=== PATIENT | male | born 1960 | race Caucasian/White ===

== ENCOUNTER 2016-11-24 06:29 | Inpatient (IN) | payer OTHER ==
[2016-11-02 08:09] VITALS: BMI 29.0
--- NOTE | 2016-11-02 08:45 | PAT Medication Instructions ---
Service Date Nov 02, 2016. Current Home Medication List Atorvastatin (Lipitor), 10 MG PO HS Medication Instructions For Your Scheduled Surgery - Take the following medications as scheduled the night before surgery: Atorvastatin (Lipitor), 10 MG PO HS If you have any questions please call us at [phone] or [phone] ( [place]) or [phone]
[2016-11-02 09:38] LABS: BASO % 0.4 %; BASO ABS # 0.03 K/uL (0-0.2); COMPLETE YES; IG% 0.4 %; LYMPH % 26.8 %; LYMPH ABS # 1.86 K/uL (1.2-3.4); MEAN CELL VOLUME 90.5 fL (80-100); MEAN CORPUSCULAR HEMOGLOBIN 30.2 pg (25-34); MEAN CORPUSCULAR HGB CONC 33.3 g/dl (32-36); MEAN PLATELET VOLUME 9.8 fL (7.4-10.4); MONO % 12.2 %; NEUT % 57.2 %; PLATELET COUNT 223 K/uL (130-400); RED BLOOD COUNT 4.64 M/uL (4.7-6.1); WHITE BLOOD COUNT 6.94 K/uL (4.8-10.8)
[2016-11-02 09:41] LABS: URINE APPEARANCE CLEAR (CLEAR); URINE BILIRUBIN NEG (NEG); URINE COLOR YELLOW; URINE NITRITE NEG (NEG); URINE SPECIFIC GRAVITY 1.003 (1.000-1.030); UROBILINOGEN NEG (NEG)
[2016-11-02 09:45] LABS: MANUAL MICROSCOPIC REQUIRED? NO; REVIEW REQ? NO
[2016-11-02 10:16] LABS: BUN/CREATININE RATIO 16.9 (10-20); CALCIUM 8.7 mg/dl (8.5-10.1); CREATININE 1.4 mg/dl (0.60-1.40); POTASSIUM 5.1 mmol/L (3.5-5.1)
[~2016-11-24] VITALS: Ht 182.9 cm; Wt 96.5 kg
[2016-11-24] VITALS (8 sets, daily range): BP systolic 122–151; BP diastolic 73–89; PULSE 66–101; TEMP 36.4–37.3; O2SAT 96–100; Ht 182.9 cm; Wt 96.5 kg
[~2016-11-24 06:29] MED LIST: ATOR10TA88 PO; CEFAZOLIN 2000 MG/60 ML D5W IV SCH; HEPARIN SOD 5000 UNIT/0.5 ML CARP SQ SCH; LACTATED RINGER'S 1000ML 1,000 ML IV SCH
[2016-11-24] MEDS ORDERED: DEXAMETHASONE SOD INJ 4 MG/ML VIAL ONE (06:44)
[2016-11-24] MEDS ORDERED: GLYCOPYRROLATE INJ 0.2 MG/ML VIAL ONE (06:44)
[2016-11-24] MEDS ORDERED: FENTANYL CITRATE INJ 50 MCG/1 ML 2 ML VIAL ONE (06:44)
[2016-11-24] MEDS ORDERED: NEOSTIGMINE METHYLSULFATE 5 MG/5 ML SYR ONE (06:44)
[2016-11-24] MEDS ORDERED: ROCURONIUM BROMIDE 10 MG/ML 5 ML VIAL ONE ×2 (06:44→09:30)
[2016-11-24] MEDS ORDERED: PROPOFOL IV EMULSION 10 MG/ML 20 ML VIAL IV ONE (06:44)
[2016-11-24] MEDS ORDERED: LIDOCAINE HCL 2% 2 ML VIAL (20MG/ML) ONE (06:44)
[2016-11-24] MEDS ORDERED: ONDANSETRON INJ 2 MG/ML 2 ML VIAL ONE (06:44)
[2016-11-24] MEDS ORDERED: MIDAZOLAM HCL 1 MG/ML 2ML VIAL ONE (06:45)
[2016-11-24] MEDS ORDERED: [UNRECOGNIZED DRUG - CODE] PO (07:04)
[2016-11-24] MEDS ORDERED: GELATIN SPONGE SZ 100 ONE (07:08)
[2016-11-24] MEDS ORDERED: BUPIVACAINE 0.5 % 5 MG/1 ML MPF 30ML VIAL ONE (07:09)
[2016-11-24] MEDS ORDERED: MANNITOL 25% 50 ML VIAL ONE (07:09)
[2016-11-24 07:24] LABS: HEMATOCRIT 41.7 % (42-52); MEAN CELL VOLUME 89.5 fL (80-100); MEAN CORPUSCULAR HEMOGLOBIN 30.3 pg (25-34); MEAN PLATELET VOLUME 9.4 fL (7.4-10.4); PLATELET COUNT 246 K/uL (130-400); RED BLOOD COUNT 4.66 M/uL (4.7-6.1); WHITE BLOOD COUNT 6.92 K/uL (4.8-10.8)
[2016-11-24 07:33] LABS: MEAN CORPUSCULAR HGB CONC 33.8 g/dl (32-36)
--- NOTE | 2016-11-24 08:12 | History and Physical ---
History & Physical Date Nov 24, 2016. 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 Treated initially with nephrectomy, now returning for completion ureterectomy. He is s/p chemotherapy, no evidence of disease recurrence. In excellent health overall. Past Medical/Surgical History Medical Problems: (1) Kidney atrophy (2) Prostate enlargement Additional History Endocrine Disorder: No Kidney Disease: No Hypertension: Yes Bleeding Tendencies: No Allergies Coded Allergies: No Known Allergies (Unverified , 11/24/16) Home Medications Scheduled Atorvastatin (Lipitor), 10 MG PO HS Magnesium Citrate (Magnesium Citrate 1.745 gm/30Ml), 1 BTL PO DIRECTED Physical Examination Skin: warm/dry Eyes: normal inspection ENT: normal ENT inspection Head: normocephalic Neck: supple Respiratory/Chest: normal breath sounds Cardiovascular: regular rate, rhythm, no edema Abdomen / GI: normal bowel sounds Back: normal inspection Extremities: normal inspection Neurologic/Psych: no motor/sensory deficits, alert Diagnosis Urothelial carcinoma Plan of Treatment Completion/distal ureterectomy (right sided); cystoscopy
[2016-11-24] MEDS ORDERED: ONDANSETRON INJ 2 MG/ML 2 ML VIAL IV PRN ×2 (08:30→11:00)
[2016-11-24] MEDS ORDERED: EpHEDrine SULFATE INJ 50 MG/ML AMP IV PRN (08:30)
[2016-11-24] MEDS ORDERED: HYDROmorphone INJ 0.5 MG/0.5 ML SYR IV PRN (08:30)
[2016-11-24] MEDS ORDERED: ATROPINE SULFATE 0.1 MG/ML 5ML SYR IV PRN (08:30)
[2016-11-24] MEDS ORDERED: KETOROLAC TROMETHAMINE 15 MG/ML VIAL IV PRN (11:00)
[2016-11-24] MEDS ORDERED: OXYBUTYNIN CHLORIDE 5 MG TAB PO PRN (11:00)
[2016-11-24] MEDS ORDERED: HYDROmorphone INJ 1 MG/ML SYR IV PRN (11:00)
--- NOTE | 2016-11-24 11:06 | [facility] Post Operative Brief Note ---
Immediate Operative Summary Operative Date Nov 24, 2016. Pre-Operative Diagnosis Urothelial carcinoma Post-Operative Diagnosis Urothelial carcinoma Procedure(s) Performed Robotic assisted Laparoscopic Right ureterectomy and Cystoscopy with Right Temporary Ureteral Catheter placement. Surgeon Dr. Dave Turner Pathologist Assistant Surgeon(s) Rosa AVILA Estimated Blood Loss 5 ml Findings Healthy appearing R ureter. NO visible or palpable tumor. No evidence of any tumor recurrence on cystoscopy. Specimens Permanent Specimen A: Right ureter Drains NATALIE; garcia Anesthesia gen Complication(s) None Disposition Recovery Room / PACU (stable)
[2016-11-24 11:26] LABS: HEMATOCRIT 40.8 % (42-52); MEAN CELL VOLUME 89.9 fL (80-100); MEAN CORPUSCULAR HEMOGLOBIN 30.4 pg (25-34); MEAN PLATELET VOLUME 9.3 fL (7.4-10.4); PLATELET COUNT 214 K/uL (130-400); RED BLOOD COUNT 4.54 M/uL (4.7-6.1)
[2016-11-24 11:35] LABS: MEAN CORPUSCULAR HGB CONC 33.8 g/dl (32-36)
[2016-11-24] MEDS: FENTANYL CITRATE INJ 50 MCG/1 ML 2 ML VIAL IV PRN ×2 (11:45→11:50)
[2016-11-24 11:46] LABS: BUN/CREATININE RATIO 11.1 (10-20); CALCIUM 8.8 mg/dl (8.5-10.1); CREATININE 1.6 mg/dl (0.60-1.40); POTASSIUM 4.9 mmol/L (3.5-5.1)
--- NOTE | 2016-11-24 12:11 | Anesthesiology Progress Note ---
Anesthesia Post Op Note Date & Time Nov 24, 2016 at 12:11 Vital Signs Pain Intensity: 4 Vital Signs Past 12 Hours Date Time Temp Pulse Resp B/P Pulse Ox O2 Delivery O2 Flow Rate FiO2 11/24/16 12:00 74 12 132/84 100 Nasal Cannula 2 11/24/16 11:50 66 14 137/82 100 Nasal Cannula 2 11/24/16 11:40 70 9 128/85 100 Mask 10 11/24/16 11:30 69 9 133/90 100 Mask 10 11/24/16 11:20 75 12 144/77 100 Mask 10 11/24/16 11:12 36.4 79 16 139/80 100 Mask 10 11/24/16 07:00 36.9 90 18 130/89 97 Room Air Notes Mental Status: alert / awake / arousable, participated in evaluation Pt Amnestic to Procedure: Yes Nausea / Vomiting: adequately controlled Pain: adequately controlled Airway Patency, RR, SpO2: stable & adequate BP & HR: stable & adequate Hydration State: stable & adequate Anesthetic Complications: no major complications apparent
--- NOTE | 2016-11-24 12:34 | OPERATIVE REPORT ---
DATE OF OPERATION: 11/24/2016 PREOPERATIVE DIAGNOSIS: Urothelial carcinoma. POSTOPERATIVE DIAGNOSIS: Urothelial carcinoma. PROCEDURE PERFORMED: 1. Cystoscopy, right ureteral stent placement. 2. Robotic-assisted laparoscopic right ureterectomy with excision of bladder cuff. ANESTHESIA: General. ESTIMATED BLOOD LOSS: 25 mL URINE OUTPUT: Not recorded. SPECIMEN: Right ureter for routine pathology. DRAINS: 1. NATALIE drain. 2. Salazar catheter. DESCRIPTION OF THE PROCEDURE: Paul Weber was identified in the preoperative holding area. Appropriate informed consents were reviewed and completed, and the patient was transported to the operating suite. Upon arrival, he received appropriate preoperative antibiotics in the form of Ancef and adequate general anesthesia. PROCEDURE #1: The patient was placed in dorsal lithotomy position and sterilely prepped and draped in standard fashion. I passed a cystoscope per urethra and inspected the urethra and prostate. His prostate is relatively enlarged. There is no evidence of stricture disease or other abnormality. Full inspection of the bladder was carried out revealing no evidence of any bladder mucosal abnormalities or bladder tumors. Both the left and right ureteral orifices were identified in orthotopic position. Following my inspection, I cannulated the right ureteral orifice with a 5-Mozambican open-ended catheter and gently advanced it to approximately 15 cm. This was left in place. The cystoscope was removed. I placed a 16-Mozambican Salazar catheter without difficulty and secured the ureteral catheter to the Salazar. This concluded that portion #1. PROCEDURE #2: For the second portion of the case, the patient was left in the lithotomy position. His abdomen was sterilely prepped and draped in standard fashion. I then passed a Veress needle per umbilicus and made a small supraumbilical incision. Utilizing a 12 mm Visiport and a 10-mm 0-degree lens, I entered the abdomen. Inspection revealed no significant adhesive disease. I inspected anticipated locations for additional port sites and I placed ports in standard robotic prostatectomy fashion with the exception of skipping a 5 mm front end assistant port. After these ports were placed, we placed the patient in steep Trendelenburg position and docked the robot. Inspection of the deep pelvis revealed that there were some adhesions on the lateral aspect of the sigmoid colon, which were holding the colon into the pouch of Erik. I freed these lateral adhesions to allow further mobility of the colon out of that space. I freed several small adhesions on the right side, which exposed the external iliac vessels and I was also additionally able to see the common iliac vessels. Starting just over the external iliac artery, I incised the peritoneum and immediately encountered the ureter. I traced this proximally until I found a clip just above the top of the vessels. I circumferentially dissected around this until it was freed. An additional Weck clip with a long suture attached to it was placed just distal to the clip that was dissected. Utilizing the stitch to aide in retraction, I was able to elevate the ureter and dissect circumferentially around it tracing it down its course toward the bladder. I incised the overlying peritoneum and continued along this path of dissection until I encountered the vas deferens which was preserved while I dissected beneath it. As I reached the extreme pelvis, I inflated the bladder with normal saline to more easily demarcate the bladder and detrusor muscle from the ureter itself. After exposing the full intramural ureter,I removed the proviously placed ureteral catheter and then placed a 2-0 V-Loc stitch on the lateral extent of my planned cystotomy before opening the cuff of bladder around the ureter. The ureter was removed through the front end assistant port without difficulty. I then proceeded to close the mucosal defect beginning on the lateral aspect, sewing toward the medial aspect. I then inflated the bladder and I saw a continued leak distally. To control this, I placed a second 2-0 V-Loc stitch beginning at the distal most extent and I closed the mucosa and then ultimately imbricated the detrusor muscle over this area. At the conclusion of these closures, there was no evidence of continued leak with bladder irrigation. Salazar catheter was checked and found to have an intact balloon. After closure was completed, a NATALIE drain was guided in through the right robotic port. The robotic ports and laparoscopic ports were removed and insufflation turned off. The robot was undocked. The patient was reversed to a supine position and all of his ports were closed sequentially. Midline port and the lateral 12 mm front end assistant port were closed with a [id number] Vicryl stitch to the fascia, followed by closure of all skin incisions with 4-0 Monocryl and Dermabond. All were infiltrated with 0.5% Marcaine prior to closure. At the conclusion of the case, the patient was extubated and taken to the PACU in stable condition. There were no complications. I attest to the content of the Intraoperative Record and any orders documented therein. Any exceptions are noted below. [facility]
[2016-11-24] MEDS: LACTATED RINGER'S 1000ML 1,000 ML IV SCH ×3 (13:55→23:46)
[2016-11-24] MEDS: ACETAMINOPHEN 500 MG TAB PO SCH ×3 (13:55→20:00)
[2016-11-24 14:23] LABS: PROTHROMBIN TIME (PATIENT) 10.8 SECONDS (9.0-12.0)
--- NOTE | 2016-11-24 16:50 | Progress Note ---
Progress Note Date of Service Nov 24, 2016. Progress Note Pt doing very well post op - ambulated - tolerated clear liquids - pain controlled - urine clear
[2016-11-24] MEDS: CEFAZOLIN IV 1,000 MG in DEXTROSE 5% 50ML 50 ML IV SCH ×2 (16:53→23:46)
[2016-11-24] MEDS: HEPARIN SOD 5000 UNIT/0.5 ML CARP SQ SCH (19:46)
[2016-11-24] MEDS: DOCUSATE SODIUM 100 MG CAP PO SCH (20:58)
[2016-11-24] MEDS ORDERED: ATORVASTATIN 10 MG TAB PO SCH (21:00)
[2016-11-24] MEDS: ACETAMINOPHEN/CODEINE 300/30MG TAB PO PRN (23:46)
[2016-11-25] MEDS: ACETAMINOPHEN 500 MG TAB PO SCH ×2 (01:46→08:00)
[2016-11-25 04:00] VITALS: BP 118/71; PULSE 89; TEMP 36.7; O2SAT 96
[2016-11-25] MEDS: LACTATED RINGER'S 1000ML 1,000 ML IV SCH (06:21)
[2016-11-25] MEDS: HEPARIN SOD 5000 UNIT/0.5 ML CARP SQ SCH (06:22)
[2016-11-25 06:56] LABS: BASO % 0.1 %; BASO ABS # 0.01 K/uL (0-0.2); COMPLETE YES; EOS % 0.1 %; HEMATOCRIT 35.1 % (42-52); IG% 0.2 %; LYMPH % 14.8 %; LYMPH ABS # 1.83 K/uL (1.2-3.4); MEAN CELL VOLUME 89.5 fL (80-100); MEAN CORPUSCULAR HEMOGLOBIN 30.1 pg (25-34); MEAN CORPUSCULAR HGB CONC 33.6 g/dl (32-36); MONO % 13.1 %; NEUT % 71.7 %; PLATELET COUNT 202 K/uL (130-400); RED BLOOD COUNT 3.92 M/uL (4.7-6.1)
[2016-11-25 07:34] LABS: BUN/CREATININE RATIO 11.5 (10-20); CALCIUM 8.6 mg/dl (8.5-10.1); CREATININE 1.5 mg/dl (0.60-1.40); POTASSIUM 4.3 mmol/L (3.5-5.1)
--- NOTE | 2016-11-25 07:38 | Progress Note ---
Subjective Date of Service: Nov 25, 2016. Subjective Pt evaluation today including: conversation w/ patient, chart review, lab review Voiding: garcia catheter in place (patent, draining clear, yellow urine) 55 yo male s/p right ureterectomy. Pt reports he feels well and is ready to go home. Denies n/v. He reports he ate a soft mechanical diet for dinner last night and tolerated it well. + passing flatus and liquid stools. Denies pain. Cr is 1.5 this morning. Review of Systems Constitutional: No chills, No fever Respiratory: No shortness of breath Cardiac: No chest pain Abdomen: No nausea, No pain, No vomiting Male : No hematuria Heme: No abnormal bleeding/bruising Objective Vital Signs Date Time Temp Pulse Resp B/P Pulse Ox O2 Delivery O2 Flow Rate FiO2 11/25/16 04:00 36.7 89 16 118/71 96 Room Air 11/24/16 23:50 Room Air 11/24/16 23:00 37.2 97 18 128/76 96 Room Air 11/24/16 19:15 37.3 101 18 125/78 96 Room Air 11/24/16 16:00 96 Room Air 11/24/16 15:46 36.7 73 20 151/83 96 Room Air 11/24/16 14:45 36.4 73 18 130/81 96 Room Air 11/24/16 13:45 36.6 66 18 122/73 98 Room Air 11/24/16 12:45 100 Nasal Cannula 2.0 11/24/16 12:45 Nasal Cannula 11/24/16 12:45 36.9 76 16 135/79 100 Nasal Cannula 11/24/16 12:25 72 13 137/79 100 Nasal Cannula 2 11/24/16 12:10 36.5 69 14 132/79 100 Nasal Cannula 2 11/24/16 12:00 74 12 132/84 100 Nasal Cannula 2 11/24/16 11:50 66 14 137/82 100 Nasal Cannula 2 11/24/16 11:40 70 9 128/85 100 Mask 10 11/24/16 11:30 69 9 133/90 100 Mask 10 11/24/16 11:20 75 12 144/77 100 Mask 10 11/24/16 11:12 36.4 79 16 139/80 100 Mask 10 Physical Exam General Appearance: no apparent distress Eyes: normal inspection ENT: hearing grossly normal Neck: no JVD Respiratory/Chest: no respiratory distress, no accessory muscle use Cardiovascular: no JVD Abdomen: + pertinent finding (abdominal incisions c/d/i) Extremities: normal inspection Neurologic/Psychiatric: alert, normal mood/affect, oriented x 3 Skin: normal color Laboratory Results Last 24 Hours Test 11/24/16 11:21 11/24/16 13:53 11/25/16 06:45 White Blood Count 9.70 K/uL 12.40 K/uL Red Blood Count 4.54 M/uL 3.92 M/uL Hemoglobin 13.8 g/dL 11.8 g/dL Hematocrit 40.8 % 35.1 % Mean Corpuscular Volume 89.9 fL 89.5 fL Mean Corpuscular Hemoglobin 30.4 pg 30.1 pg Mean Corpuscular Hemoglobin Concent 33.8 g/dl 33.6 g/dl RDW Standard Deviation 42.4 fL 43.0 fL RDW Coefficient of Variation 13.0 % 13.3 % Platelet Count 214 K/uL 202 K/uL Mean Platelet Volume 9.3 fL 9.0 fL Sodium Level 138 mmol/L 141 mmol/L Potassium Level 4.9 mmol/L 4.3 mmol/L Chloride Level 105 mmol/L 108 mmol/L Carbon Dioxide Level 27 mmol/L 26 mmol/L Anion Gap 6.0 mmol/L 7.0 mmol/L Blood Urea Nitrogen 18 mg/dl 17 mg/dl Creatinine 1.60 mg/dl 1.50 mg/dl Est Creatinine Clear Calc Drug Dose 62.8 ml/min 67.0 ml/min Estimated GFR () 55.4 59.9 Estimated GFR (Non- 47.8 51.7 BUN/Creatinine Ratio 11.1 11.5 Random Glucose 149 mg/dl 110 mg/dl Calcium Level 8.8 mg/dl 8.6 mg/dl Prothrombin Time 10.8 SECONDS Prothromb Time International Ratio 1.0 Neutrophils (%) (Auto) 71.7 % Lymphocytes (%) (Auto) 14.8 % Monocytes (%) (Auto) 13.1 % Eosinophils (%) (Auto) 0.1 % Basophils (%) (Auto) 0.1 % Neutrophils # (Auto) 8.89 K/uL Lymphocytes # (Auto) 1.83 K/uL Monocytes # (Auto) 1.63 K/uL Eosinophils # (Auto) 0.01 K/uL Basophils # (Auto) 0.01 K/uL Immature Granulocyte % (Auto) 0.2 % Immature Granulocyte # (Auto) 0.03 K/uL Assessment and Plan POD #1 s/p right ureterectomy. AFVSS. Pt doing well post-op. Encourage use of IS. Encourage ambulation to hallway. Will hep lock IV fluids. Pt likely for d/c home after breakfast this morning. Discharge planning: home
[2016-11-25] MEDS ORDERED: ACET-749 PO (07:40)
[2016-11-25] MEDS ORDERED: DTR5 PO (07:40)
[2016-11-25] MEDS ORDERED: CIPR-255 PO (07:40)
[2016-11-25] MEDS ORDERED: CLC100 PO (07:40)
--- NOTE | 2016-11-25 07:48 | Discharge Instructions ---
Discharge Instructions Date of Service Nov 25, 2016. 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 Instructions / Follow-Up Instructions / Follow-Up 1. Do not lift >20lbs x 6 weeks. 2. No heavy exercise x 6 weeks. You may engage in light activity such as walking and stairs as tolerated. 3. Do not drive x [address] while taking narcotics. 4. Follow-up as scheduled. Please call our office at [phone] if you need to reschedule for any reason. . Current Hospital Diet Hospital Diet(s): Regular Diet Discharge Diet Recommended Diet: Regular Diet Procedures Procedures Performed: Robotic assisted Laparoscopic Right ureterectomy and Cystoscopy with Right Temporary Ureteral Catheter placement. Pending Studies Studies pending at discharge: yes List of pending studies: Right ureter pathology Medical Emergencies . Who to Call and When: Medical Emergencies: If at any time you feel your situation is an emergency, please call 911 immediately. . Non-Emergent Contact Non-Emergency issues call your: Urologist Call Non-Emergent contact if: temperature is above 101.5, your pain is not controlled, your pain is worsening, your pain is unusual for you, your pain is concerning you, you have any medication questions . . "Provider Documentation" section prepared by Rosa Webber. VTE Core Measure Inpt VTE Proph given/why not?: Unfractionated heparin SQ, SCD's [place] Drug Monitoring Program Search Results: patient reviewed within database, no issues identified
[2016-11-25 08:02] VITALS: BP 128/88; PULSE 95; TEMP 36.6; O2SAT 95
[2016-11-25] MEDS: DOCUSATE SODIUM 100 MG CAP PO SCH (08:24)
[2016-11-25] MEDS: CEFAZOLIN IV 1,000 MG in DEXTROSE 5% 50ML 50 ML IV SCH (08:24)
[2016-11-25] MEDS: ACETAMINOPHEN/CODEINE 300/30MG TAB PO PRN (08:24)
[2016-11-25 10:13] VITALS: BP 128/88; PULSE 95; TEMP 36.6; O2SAT 95
--- NOTE | 2016-11-27 10:45 | Discharge Summary ---
Discharge Summary Date of Service Nov 27, 2016. Discharge Summary Admission Date: Nov 24, 2016 at 10:58 Discharge Date: Nov 25, 2016 Discharge Disposition: Home Principal Diagnosis: Urothelial carcinoma Procedures: Right ureterectomy Medication Reconciliation New Medications: Ciprofloxacin Hcl (Cipro) 500 Mg Tab 500 MG PO BID, #10 TAB 0 Refills Acetaminophen/Codeine (Tylenol W/Codeine #3) 300 Mg/30 Mg Tab 1-2 TAB PO Q4H PRN for Pain, #20 TAB 0 Refills Docusate Sodium (Docusate Sodium) 100 Mg Cap 100 MG PO BID PRN for Constipation, #60 CAP 0 Refills Oxybutynin Chloride (Oxybutynin Chloride) 5 Mg Tab 5 MG PO Q8 PRN for BLADDER SPASMS, #10 TAB 0 Refills Continued Medications: Atorvastatin (Lipitor) 10 Mg Tab 10 MG PO HS, TAB Discontinued Medications: Magnesium Citrate (Magnesium Citrate 1.745 gm/30Ml) 1 Adele Adele 1 BTL PO DIRECTED Hospital Course Admitted for completion ureterectomy (right). Prior nephrectomy identified a urothelial carcinoma. Details of the procedure as dictated previously in the operative report, however, in summary, he tolerated the procedure extremely well and was transferred to the floor in stable condition. He progressed well overnight. Drain was removed on post op day #1 and he was discharged in stable condition with a catheter in place. Total time spent on discharge = This includes examination of the patient, discharge planning, medication reconciliation, and communication with other providers. Discharge Instructions Please see previously written discharge instructions
[2017-05-20] MEDS ORDERED: CPR500 PO (17:31)
[2017-05-20] MEDS ORDERED: MTR500 PO (17:31)
[2017-05-20] MEDS ORDERED: ULT50X PO ×2 (17:31→17:32)
== END 2016-11-25 11:20 | disposition home or self-care (01) | DRG 655 ==
LOC: ENRESERVTM → ENRESERVDT → C.ACU 06:29 → C.MSN 10:58
PROVIDERS: ADMIT Urology; ATTEND Urology
PROC: 8E0W4CZ Robotic Assisted Procedure of Trunk Region, Percutaneous Endoscopic Approach (ICD-10-PCS; principal; 2016-11-24 08:30)
PROC: 0TBB4ZZ Excision of Bladder, Percutaneous Endoscopic Approach (ICD-10-PCS; principal; 2016-11-24 08:30)
PROC: 0T768DZ Dilation of Right Ureter with Intraluminal Device, Via Natural or Artificial Opening Endoscopic (ICD-10-PCS; principal; 2016-11-24 08:30)
PROC: 0TT64ZZ Resection of Right Ureter, Percutaneous Endoscopic Approach (ICD-10-PCS; principal; 2016-11-24 08:30)
DX: C68.8 Malignant neoplasm of overlapping sites of urinary organs (principal); N26.1 Atrophy of kidney (terminal); I10 Essential (primary) hypertension; N40.0 Benign prostatic hyperplasia without lower urinary tract symptoms

== ENCOUNTER 2017-05-18 11:01 | Inpatient (IN) | payer OTHER ==
[~2017-05-18] VITALS: Ht 182.9 cm; Wt 99.7 kg
[~2017-05-18 11:01] MED LIST changes: +ACET-749 PO; -CEFAZOLIN 2000 MG/60 ML D5W IV SCH; +CIPR-255 PO; +CLC100 PO; +DTR5 PO; -HEPARIN SOD 5000 UNIT/0.5 ML CARP SQ SCH; -LACTATED RINGER'S 1000ML 1,000 ML IV SCH
[2017-05-18] MEDS ORDERED: ONDANSETRON INJ 2 MG/ML 2 ML VIAL IV STA (11:57)
[2017-05-18] MEDS ORDERED: SODIUM CHLORIDE 0.9% 1000ML 1,000 ML IV STA (11:57)
[2017-05-18] MEDS ORDERED: MoRPHine SULFATE 4 MG/ML 1 ML CARP\\VIAL IV STA ×2 (11:57→13:24)
[2017-05-18] MEDS ORDERED: OPTIRAY 320 IV PRN (12:00)
[2017-05-18 12:05] LABS: BASO % 0.1 %; BASO ABS # 0.02 K/uL (0-0.2); COMPLETE YES; HEMATOCRIT 42.1 % (42-52); IG% 0.3 %; LYMPH ABS # 0.96 K/uL (1.2-3.4); MEAN CELL VOLUME 88.1 fL (80-100); MEAN CORPUSCULAR HEMOGLOBIN 30.1 pg (25-34); MEAN CORPUSCULAR HGB CONC 34.2 g/dl (32-36); MEAN PLATELET VOLUME 9.8 fL (7.4-10.4); MONO % 7.5 %; NEUT % 86.1 %; PLATELET COUNT 249 K/uL (130-400); RED BLOOD COUNT 4.78 M/uL (4.7-6.1); WHITE BLOOD COUNT 16.02 K/uL (4.8-10.8)
[2017-05-18 12:13] LABS: ALT/SGPT 21 U/L (12-78); BLOOD UREA NITROGEN 17 mg/dl (7-18); BUN/CREATININE RATIO 11.6 (10-20); CALCIUM 9.2 mg/dl (8.5-10.1); CARBON DIOXIDE 21 mmol/L (21-32); CHLORIDE 103 mmol/L (98-107); GLUCOSE 138 mg/dl (70-99); POTASSIUM 3.9 mmol/L (3.5-5.1); SODIUM 135 mmol/L (136-145)
[2017-05-18 12:14] LABS: INR 1.1 (0.9-1.1); PARTIAL THROMBOPLASTIN RATIO 1.1; PROTHROMBIN TIME (PATIENT) 11.3 SECONDS (9.0-12.0)
[2017-05-18 12:17] LABS: ALB/GLOB RATIO 0.8 (0.9-2); ALKALINE PHOSPHATASE 71 U/L (45-117); AST/SGOT 15 U/L (15-37)
--- NOTE | 2017-05-18 12:29 | DIAGNOSTIC IMAGING REPORT ---
CHEST ONE VIEW PORTABLE CLINICAL HISTORY: Chest pain dyspnea COMPARISON STUDY: 01/15/2016 FINDINGS: Mild stable cardiomegaly. Mid and upper lungs are clear. Slight indistinctness of the parenchymal markings left lung base. Diaphragms smooth. IMPRESSION: Potential early infiltrate left base. Mild stable cardiomegaly. The above report was generated using voice recognition software. It may contain grammatical, syntax or spelling errors. Electronically signed by: Andrea Ponce M.D. 05/18/2017 12:28 PM Dictated Date/Time: 05/18/2017 12:27 PM
--- NOTE | 2017-05-18 14:54 | DIAGNOSTIC IMAGING REPORT ---
ABD/PELVIS IV AND ORAL CONT CT DOSE: 1153.96 mGycm HISTORY: Pain Lower quadrant abdominal pain TECHNIQUE: Multiaxial CT images of the abdomen and pelvis were performed following the use of intravenous and oral contrast. A dose lowering technique was utilized adhering to the principles of ALARA. COMPARISON STUDY: GM G 10/10/2015 FINDINGS: Moderate bibasilar atelectatic change. Pleural thickening both lung bases. Trace perihepatic ascites. Trace free fluid right paracolic gutter. Interval resection of the right kidney. Left kidney is uniform. Bowel pattern is nonobstructive. Chronic sigmoid diverticulosis. Bladder is midline. Inguinal regions are unremarkable. Mild pericolonic infiltrative change at the level of the hepatic flexure and mid ascending colon suggesting mild colitis. No evidence for abscess collection or obstruction. Small gallstone within the gallbladder. IMPRESSION: 1. Bibasilar atelectasis. 2. Diverticulitis involving the mid a sending colon at/slightly proximal to the hepatic flexure. 3. No evidence for abscess collection or obstruction. 4. Interval right nephrectomy The above report was generated using voice recognition software. It may contain grammatical, syntax or spelling errors. Electronically signed by: Andrea Ponce M.D. 05/18/2017 2:52 PM Dictated Date/Time: 05/18/2017 2:47 PM
[2017-05-18] MEDS ORDERED: METRONIDAZOLE 500MG / 100ML NSS IV STA (15:15)
[2017-05-18] MEDS ORDERED: CIPROFLOXACIN 400MG / 200ML D5W IV STA (15:15)
[2017-05-18] MEDS ORDERED: ONDANSETRON INJ 2 MG/ML 2 ML VIAL IV PRN (16:00)
[2017-05-18] MEDS ORDERED: ACETAMINOPHEN 325 MG TAB PO PRN (16:00)
--- NOTE | 2017-05-18 16:06 | EMERGENCY ROOM VISIT NOTE ---
History First contact with patient: 11:49 Chief Complaint: ABDOMINAL PAIN Stated Complaint: ABD PAIN, N, FEVER, CHILLS Nursing Triage Summary: pt reports started with diffuse abdominal pain and cramping Mon. AM with NV unable to tolerate food since Sun. reports Hx of diverticulosis denies blood in stool , urine or vomit History of Present Illness The patient is a 56 year old male who presents to the Emergency Room via private vehicle accompanied by female with complaints of "abdominal pain, nausea , fevers, chills". The patient states that this past Wednesday while eating dinner , he large meal, and then went to bed feeling fine. He states that he woke up around 12:45 AM early Wednesday morning and noted pain in the right lower abdominal region which then radiated across to the left. This was accompanied by emesis. He states that he has tried drinking broth, but has minimal success. He has had no food since Wednesday. He rates the pain as a 10/10. He states that he has only one kidney, as the right was removed in March 2016 secondary to cancer. He also states that he has difficulty taking a deep breath as it radiate to the abdomen. He also notes minimal chest pain. Review of Systems A complete 10-point Review of Systems was discussed with the patient, with pertinent positives and negatives listed in the History of Present Illness. All remaining Review of Systems questions can be considered negative unless otherwise specified. 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 Social History Smoking Status: Never Smoker Drug Use: none Marital Status: Housing Status: lives with family Occupation Status: employed Current/Historical Medications Scheduled Atorvastatin (Lipitor), 10 MG PO HS Allergies Coded Allergies: No Known Allergies (Unverified , 05/18/17) Physical Exam Vital Signs Date Time Temp Pulse Resp B/P (MAP) Pulse Ox O2 Delivery O2 Flow Rate FiO2 05/18/17 13:35 110 20 131/81 96 Room Air 05/18/17 12:33 107 05/18/17 12:12 94 Room Air 05/18/17 12:12 108 20 112/69 95 Room Air 05/18/17 11:02 37.0 114 18 135/98 94 Room Air Physical Exam VITAL SIGNS - Vital signs and nursing notes were reviewed. Stable. Tachycardic. GENERAL -56-year-old male appearing his stated age who is in no acute distress. Communicates well with provider and answers questions appropriately. SKIN - Without rashes. No petechial rashes. HEAD - NC/AT. EYES - PERRL with EOMI bilaterally. Sclera anicteric. Palpebral conjunctiva pink and moist with no injection noted. EARS - No deformities of external structures noted on gross examination bilaterally. No pain elicited with palpation of the tragus bilaterally. External auditory canals without discharge or otorrhea. Tympanic membranes pearly ryan without retraction or bulging. No fluid or purulent material visualized behind the TM. Handle of malleus, umbo, cone of light, pars tensa/ flaccid all easily visualized. NOSE - Midline and without cyanosis. No epistaxis or purulent drainage noted. Septum midline without deviation or septal hematoma noted. MOUTH/OROPHARYNX - Without perioral cyanosis. Buccal mucosa pink and moist and without leukoplakia. Tongue midline with equal elevation of palate bilaterally. No tonsillar hypertrophy, erythema, or exudates noted. Fair dentition noted. NECK - Neck with FROM. Supple to palpation. No lymphadenopathy noted. No nuchal rigidity. LUNGS - Chest wall symmetric without accessory muscle use, intercostals retractions, or central cyanosis. Normal vesicular breath sounds CTA B/L. No wheezes, rales, or rhonchi appreciated. CARDIAC - RRR with S1/S2. No murmur, rubs, or gallops appreciated. ABDOMEN - Abdominal contour without pulsations or visible masses. BS normoactive all four quadrants. There is right lower quadrant, as well as left lower quadrant abdominal tenderness. No palpable masses, hepatosplenomegaly, or ascites noted. EXTREMITIES - No clubbing or peripheral cyanosis. No pretibial edema present. +5 /5 strength noted in UE/LE bilaterally. PSYCH - A&O, cooperates fully with examiner. Pt is very pleasant and interacts well with examiner. Medical Decision & Procedures ER Provider Diagnostic Interpretation: CHEST ONE VIEW PORTABLE CLINICAL HISTORY: Chest pain dyspnea COMPARISON STUDY: 01/15/2016 FINDINGS: Mild stable cardiomegaly. Mid and upper lungs are clear. Slight indistinctness of the parenchymal markings left lung base. Diaphragms smooth. IMPRESSION: Potential early infiltrate left base. Mild stable cardiomegaly. The above report was generated using voice recognition software. It may contain grammatical, syntax or spelling errors. Electronically signed by: Andrea Ponce M.D. 05/18/2017 12:28 PM Dictated Date/Time: 05/18/2017 12:27 PM ABD/PELVIS IV AND ORAL CONT CT DOSE: 1153.96 mGycm HISTORY: Pain Lower quadrant abdominal pain TECHNIQUE: Multiaxial CT images of the abdomen and pelvis were performed following the use of intravenous and oral contrast. A dose lowering technique was utilized adhering to the principles of ALARA. COMPARISON STUDY: GM G 10/10/2015 FINDINGS: Moderate bibasilar atelectatic change. Pleural thickening both lung bases. Trace perihepatic ascites. Trace free fluid right paracolic gutter. Interval resection of the right kidney. Left kidney is uniform. Bowel pattern is nonobstructive. Chronic sigmoid diverticulosis. Bladder is midline. Inguinal regions are unremarkable. Mild pericolonic infiltrative change at the level of the hepatic flexure and mid ascending colon suggesting mild colitis. No evidence for abscess collection or obstruction. Small gallstone within the gallbladder. IMPRESSION: 1. Bibasilar atelectasis. 2. Diverticulitis involving the mid a sending colon at/slightly proximal to the hepatic flexure. 3. No evidence for abscess collection or obstruction. 4. Interval right nephrectomy The above report was generated using voice recognition software. It may contain grammatical, syntax or spelling errors. Electronically signed by: Andrea Ponce M.D. 05/18/2017 2:52 PM Dictated Date/Time: 05/18/2017 2:47 PM Laboratory Results 05/18/17 10:20 Red Blood Count 4.78, Mean Corpuscular Volume 88.1, Mean Corpuscular Hemoglobin 30.1, Mean Corpuscular Hemoglobin Concent 34.2, Mean Platelet Volume 9.8, Neutrophils (%) (Auto) 86.1, Lymphocytes (%) (Auto) 6.0, Monocytes (%) (Auto) 7.5, Eosinophils (%) (Auto) 0.0, Basophils (%) (Auto) 0.1, Neutrophils # (Auto) 13.79, Lymphocytes # (Auto) 0.96, Monocytes # (Auto) 1.20, Eosinophils # (Auto) 0.00, Basophils # (Auto) 0.02 05/18/17 10:20 Test 05/18/17 10:20 05/18/17 15:47 White Blood Count 16.02 K/uL (4.8-10.8) Red Blood Count 4.78 M/uL (4.7-6.1) Hemoglobin 14.4 g/dL (14.0-18.0) Hematocrit 42.1 % (42-52) Mean Corpuscular Volume 88.1 fL (80-100) Mean Corpuscular Hemoglobin 30.1 pg (25-34) Mean Corpuscular Hemoglobin Concent 34.2 g/dl (32-36) Platelet Count 249 K/uL (130-400) Mean Platelet Volume 9.8 fL (7.4-10.4) Neutrophils (%) (Auto) 86.1 % Lymphocytes (%) (Auto) 6.0 % Monocytes (%) (Auto) 7.5 % Eosinophils (%) (Auto) 0.0 % Basophils (%) (Auto) 0.1 % Neutrophils # (Auto) 13.79 K/uL (1.4-6.5) Lymphocytes # (Auto) 0.96 K/uL (1.2-3.4) Monocytes # (Auto) 1.20 K/uL (0.11-0.59) Eosinophils # (Auto) 0.00 K/uL (0-0.5) Basophils # (Auto) 0.02 K/uL (0-0.2) RDW Standard Deviation 44.8 fL (36.4-46.3) RDW Coefficient of Variation 13.7 % (11.5-14.5) Immature Granulocyte % (Auto) 0.3 % Immature Granulocyte # (Auto) 0.05 K/uL (0.00-0.02) Prothrombin Time 11.3 SECONDS (9.0-12.0) Prothromb Time International Ratio 1.1 (0.9-1.1) Activated Partial Thromboplast Time 27.7 SECONDS (21.0-31.0) Partial Thromboplastin Ratio 1.1 Anion Gap 11.0 mmol/L (3-11) Est Creatinine Clear Calc Drug Dose 66.3 ml/min Estimated GFR () 59.5 Estimated GFR (Non- 51.3 BUN/Creatinine Ratio 11.6 (10-20) Calcium Level 9.2 mg/dl (8.5-10.1) Total Bilirubin 0.5 mg/dl (0.2-1) Aspartate Amino Transf (AST/SGOT) 15 U/L (15-37) Alanine Aminotransferase (ALT/SGPT) 21 U/L (12-78) Alkaline Phosphatase 71 U/L (45-117) Troponin I < 0.015 ng/ml (0-0.045) Total Protein 7.9 gm/dl (6.4-8.2) Albumin 3.6 gm/dl (3.4-5.0) Globulin 4.3 gm/dl (2.5-4.0) Albumin/Globulin Ratio 0.8 (0.9-2) Medications Administered Medications (Trade) Dose Ordered Sig/Patrick Route Start Time Stop Time Status Last Admin Dose Admin Sodium Chloride 1,000 ml @ 999 mls/hr Q1H1M STAT IV 05/18/17 11:57 05/18/17 12:57 DC 05/18/17 12:07 999 MLS/HR Morphine Sulfate (MoRPHine SULFATE INJ) 4 mg NOW STAT IV 05/18/17 11:57 05/18/17 12:00 DC 05/18/17 12:08 4 MG Ondansetron HCl (Zofran Inj) 4 mg NOW STAT IV 05/18/17 11:57 05/18/17 12:00 DC 05/18/17 12:07 4 MG Morphine Sulfate (MoRPHine SULFATE INJ) 4 mg NOW STAT IV 05/18/17 13:24 05/18/17 13:25 DC 05/18/17 13:32 4 MG Ciprofloxacin/ Dextrose (Cipro / D5W) 400 mg NOW STAT IV 05/18/17 15:15 05/18/17 15:17 DC 05/18/17 15:31 400 MG Metronidazole (Flagyl / Nss) 500 mg NOW STAT IV 05/18/17 15:15 05/18/17 15:17 DC 05/18/17 15:31 500 MG Medical Decision Patient was seen and evaluated as above. He presents to us today with abdominal pain. He also notes over the chest pain, therefore bedside EKG was performed and reveals slight nonspecific T wave abnormality in the inferior leads. Troponin was negative. He was a leukocytosis of 16,000. Creatinine stable at 1.5. No evidence of liver failure. Chest x-ray reveals concern over infiltrate, however I feel this is unlikely. CT of the abdomen and pelvis was performed, after speaking with the CT scan employees to verify he could tolerate the contrast load. CT scan results as above. Acute diverticulitis noted. Because he has not tolerated by mouth fluids since Wednesday, and has a significant white count, and clinically looks ill I believe he should stay here for further evaluation and management in the inpatient setting. I did speak with our pharmacist, who recommended regular dosing regarding Cipro and Flagyl. This was initiated. I spoke with the hospitalist regarding the patient's stay. Please refer to further documentation. He is to follow-up regarding the EKG changes with his family doctor. In evaluation treatment this patient following differential diagnoses were entertained: Diverticulitis, appendicitis, perforated diverticula, abscess, among others. Impression Primary Impression: Diverticulitis Departure Information Dispostion Admitted as an inpatient Condition FAIR Referrals Paulie Umanzor M.D. (PCP) Patient Instructions My [facility]
--- NOTE | 2017-05-18 16:46 | History and Physical ---
History & Physical Date & Time of Service: May 18, 2017 at 16:02 Chief Complaint: Abd Pain, N, Fever, Chills Primary Care Physician: Paulie Umanzor M.D. 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 Onset was yesterday morning. He describes pain located in periumbilical area. He reports associated N/V (mostly dry heaving), fever (Tmax 99.9 this AM), and chills. He was last able to tolerate solid food 2 days ago. Took in small amount of fluid yesterday, but then only ice chips. Bowel movements have been soft formed. Voiding smaller amount than usual today. Patient also admits to sharp chest discomfort on the right side, non-radiating, which started at 10 am while in bed. Chest discomfort has been constant but increases with deep inspiration. Admits to SOB starting this morning, especially with pain or movement. No HAGEN at baseline, climbs stairs without SOB. No recent cough. Denies increased rhinorrhea from baseline. Denies dizziness, dysuria, frequency, urgency, difficulty voiding, darkened urine, hematochezia, melena, LE edema, calf pain, rash. Has chronic right lower back pain. He reports lifting heavy objects for tailgating 3 days ago. No hx of cardiac disorder or VTE. Last colonoscopy by Dr. Cormier in 09/2013 showed diverticulosis in sigmoid colon and descending colon. No other abdominal surgeries. Past Medical/Surgical History Medical Problems: (1) Dyslipidemia Status: Chronic (2) Kidney atrophy Status: Chronic (3) Prostate enlargement Status: Chronic (4) Transitional cell carcinoma of kidney Status: Chronic Surgical Problems: (1) H/O unilateral nephrectomy Status: Chronic (2) S/p right ureterectomy Status: Chronic Family History Patient reports no known family medical history. Denies family hx of heart disease or VTE. Social History Smoking Status: Never Smoker Alcohol Use: occasionally Drug Use: none Marital Status: Housing status: lives with significant other Allergies Coded Allergies: No Known Allergies (Unverified , 05/18/17) Home Medications Scheduled Atorvastatin (Lipitor), 10 MG PO HS Review of Systems Ten systems reviewed and negative except as noted in HPI. Physical Exam Vital Signs Date Time Temp Pulse Resp B/P (MAP) Pulse Ox O2 Delivery O2 Flow Rate FiO2 05/18/17 15:59 116 20 128/86 92 Room Air 05/18/17 13:35 110 20 131/81 96 Room Air 05/18/17 12:33 107 05/18/17 12:12 94 Room Air 05/18/17 12:12 108 20 112/69 95 Room Air 05/18/17 11:02 37.0 114 18 135/98 94 Room Air General Appearance: WD/WN, no apparent distress Head: normocephalic, atraumatic Eyes: normal inspection, sclerae normal ENT: hearing grossly normal, pharynx normal Neck: supple, trachea midline Respiratory/Chest: lungs clear, normal breath sounds, no respiratory distress, no accessory muscle use, + pertinent finding (+ right chest wall tenderness) Cardiovascular: no murmur, + tachycardia (regular rhythm) Abdomen/GI: normal bowel sounds, soft, + pertinent finding (tender in RLQ) Back: + pertinent finding (+ right lumbar paraspinal muscle tenderness. no CVA tenderness on the left. ) Extremities/Musculoskelatal: no calf tenderness, no pedal edema Neurologic/Psych: alert, normal mood/affect, oriented x 3 Skin: normal color, warm/dry, no rash (no rash on chest) Diagnostics Laboratory Results Results Past 24 Hours Test 05/18/17 10:20 05/18/17 15:47 Range/Units White Blood Count 16.02 4.8-10.8 K/uL Red Blood Count 4.78 4.7-6.1 M/uL Hemoglobin 14.4 14.0-18.0 g/dL Hematocrit 42.1 42-52 % Mean Corpuscular Volume 88.1 80-100 fL Mean Corpuscular Hemoglobin 30.1 25-34 pg Mean Corpuscular Hemoglobin Concent 34.2 32-36 g/dl Platelet Count 249 130-400 K/uL Mean Platelet Volume 9.8 7.4-10.4 fL Neutrophils (%) (Auto) 86.1 % Lymphocytes (%) (Auto) 6.0 % Monocytes (%) (Auto) 7.5 % Eosinophils (%) (Auto) 0.0 % Basophils (%) (Auto) 0.1 % Neutrophils # (Auto) 13.79 1.4-6.5 K/uL Lymphocytes # (Auto) 0.96 1.2-3.4 K/uL Monocytes # (Auto) 1.20 0.11-0.59 K/uL Eosinophils # (Auto) 0.00 0-0.5 K/uL Basophils # (Auto) 0.02 0-0.2 K/uL RDW Standard Deviation 44.8 36.4-46.3 fL RDW Coefficient of Variation 13.7 11.5-14.5 % Immature Granulocyte % (Auto) 0.3 % Immature Granulocyte # (Auto) 0.05 0.00-0.02 K/uL Prothrombin Time 11.3 9.0-12.0 SECONDS Prothromb Time International Ratio 1.1 0.9-1.1 Activated Partial Thromboplast Time 27.7 21.0-31.0 SECONDS Partial Thromboplastin Ratio 1.1 Sodium Level 135 136-145 mmol/L Potassium Level 3.9 3.5-5.1 mmol/L Chloride Level 103 98-107 mmol/L Carbon Dioxide Level 21 21-32 mmol/L Anion Gap 11.0 3-11 mmol/L Blood Urea Nitrogen 17 7-18 mg/dl Creatinine 1.50 0.60-1.40 mg/dl Est Creatinine Clear Calc Drug Dose 66.3 ml/min Estimated GFR () 59.5 Estimated GFR (Non- 51.3 BUN/Creatinine Ratio 11.6 10-20 Random Glucose 138 70-99 mg/dl Calcium Level 9.2 8.5-10.1 mg/dl Total Bilirubin 0.5 0.2-1 mg/dl Aspartate Amino Transf (AST/SGOT) 15 15-37 U/L Alanine Aminotransferase (ALT/SGPT) 21 12-78 U/L Alkaline Phosphatase 71 45-117 U/L Troponin I < 0.015 0-0.045 ng/ml Total Protein 7.9 6.4-8.2 gm/dl Albumin 3.6 3.4-5.0 gm/dl Globulin 4.3 2.5-4.0 gm/dl Albumin/Globulin Ratio 0.8 0.9-2 Diagnostic Radiology CHEST ONE VIEW PORTABLE CLINICAL HISTORY: Chest pain dyspnea COMPARISON STUDY: 01/15/2016 FINDINGS: Mild stable cardiomegaly. Mid and upper lungs are clear. Slight indistinctness of the parenchymal markings left lung base. Diaphragms smooth. IMPRESSION: Potential early infiltrate left base. Mild stable cardiomegaly. ABD/PELVIS IV AND ORAL CONT CT DOSE: 1153.96 mGycm HISTORY: Pain Lower quadrant abdominal pain TECHNIQUE: Multiaxial CT images of the abdomen and pelvis were performed following the use of intravenous and oral contrast. A dose lowering technique was utilized adhering to the principles of ALARA. COMPARISON STUDY: GM G 10/10/2015 FINDINGS: Moderate bibasilar atelectatic change. Pleural thickening both lung bases. Trace perihepatic ascites. Trace free fluid right paracolic gutter. Interval resection of the right kidney. Left kidney is uniform. Bowel pattern is nonobstructive. Chronic sigmoid diverticulosis. Bladder is midline. Inguinal regions are unremarkable. Mild pericolonic infiltrative change at the level of the hepatic flexure and mid ascending colon suggesting mild colitis. No evidence for abscess collection or obstruction. Small gallstone within the gallbladder. IMPRESSION: 1. Bibasilar atelectasis. 2. Diverticulitis involving the mid a sending colon at/slightly proximal to the hepatic flexure. 3. No evidence for abscess collection or obstruction. 4. Interval right nephrectomy EKG sinus tachycardia, rate 109, nonspecific T wave abnormality in inferior leads III and aVF, no ST changes, in comparison to prior EKG 01/15/2016, nonspecific T wave abnormality is worse in lead III and new in aVF Impression Assessment and Plan ACUTE DIVERTICULITIS Initial episode Afebrile in ER (low grade temp of 99.9F [employer]), + leukocytosis (WBC 16K), + tachycardia, normotensive, lactic acid pending CT a/p shows diverticulitis involving the mid ascending colon at/slightly proximal to the hepatic flexure, no evidence for abscess or obstruction Continue IV Cipro and Flagyl given in ER Clear liquid diet IVF's PRN morphine for pain control PLEURITIC CHEST PAIN/ SOB No hypoxia CXR showed possible left lower lobe infiltrate, however CT a/p showed bibasilar atelectasis, history not consistent with PNA (no cough); incentive spirometry ordered Initial troponin negative, repeat pending EKG- sinus tach, nonspecific T wave abnormalities inferior leads Monitor in telemetry SINUS TACHYCARDIA Possibly secondary to infection, mild dehydration Monitor in telemetry CKD STAGE III Solitary kidney (s/p right nephrectomy for nonfunctional kidney) Creatinine = 1.5 (baseline 1.4 on 05/14/17) Monitor renal function Avoid nephrotoxins HISTORY OF URETERAL CANCER S/p right ureterectomy 11/24/16 (Dr. Turner), s/p chemo completed fall No evidence of recurrence on CT early February or cysto in 02/2017 per urology note DYSLIPIDEMIA Continue atorvastatin DVT PROPHYLAXIS Heparin SQ DISPOSITION Follows with Dr. Umanzor for primary care Patient seen in collaboration with Dr. Cochran. Please see his addendum. VTE Prophylaxis VTE Risk Assessment Done? Y/N: Yes Risk Level: Moderate Note ATTENDING ADDENDUM Record reviewed. Patient interviewed and examined in his room. Care coordinated with Vianey Adkins PA-C. Please refer to her documentation for patient's history. Briefly, 56 YO male with history of diverticulosis, ureteral carcinoma, s/p nephrectomy. Presented to ED with right sided abdominal pain that started the night before admission. Pain is severe, constant, radiates towards the lower abdomen. Associated with nausea and minimal emesis. Distended. No diarrhea, melena, or hematochezia. Also experiencing some dyspnea on exertion and right sided pleuritic chest pain that started today. EXAM: General- no acute distress VS- as noted HEENT- anicteric Neck- no JVD Lungs- clear to auscultation Heart- RRR, no murmur, gallop, or rub appreciated Abdomen- moderately distended, soft, moderate right-sided tenderness with guarding; no palpable masses or hepatosplenomegaly Extremities- no pretibial edema or calf tenderness Neuro- alert DATA: WBC 16,020. Lactate 1.4. D-dimer 2710. Trop < 0.015. Other lab studies as noted. Chest x-ray reviewed. No infiltrates appreciated by undersigned, but Radiology noted possible early infiltrate left base. CT abdomen per Radiology: Bibasilar atelectasis. Diverticulitis ascending colon without evidence of perforation or abscess. EKG performed at 12:[address] at 110 / minute, no acute changes. ASSESSMENT AND PLAN: DIVERTICULITIS Known history of sigmoid diverticulosis in 2013; no other pathology was noted. Now with right-sided abdominal pain, fever, leukocytosis, and CT findings consistent with diverticulitis of ascending colon without apparent perforation or abscess. Initial management will consist of analgesics, anti-emetics, IV fluids, bowel rest, IV antibiotic therapy with ciprofloxacin and metronidazole. Consult GI and / or General Surgery if no improvement. ? need for f/u colonoscopy after acute diverticulitis resolved- should be discussed with GI. CHEST PAIN / SOB Experiencing right-sided pleuritic chest pain and dyspnea and dyspnea on exertion. D-dimer elevated. Must rule out thromboembolic disease. Best not to do CTA chest due to (1) solitary kidney and CKD (2) administration of IV contrast with CT of abdomen + pelvis. Start IV heparin tonight. Check venous duplex lower extremities. Check V/Q scan. PULMONARY ATELECTASIS Incentive spirometry. CKD II S/P right nephrectomy. Baseline creatinine 1.4 with estimated GFR of 1.4. Maintain volume status. Avoid potential nephrotoxins when able. . Please refer to IVY Adkins's documentation for discussion of other issues. Chevy Cochran MD .
[2017-05-18 17:00] VITALS: BP 110/69; PULSE 123; TEMP 38; O2SAT 91
[2017-05-18] MEDS: SODIUM CHLORIDE 0.9% 1000ML 1,000 ML IV SCH ×2 (17:02→21:53)
[2017-05-18 17:33] LABS: URINE APPEARANCE CLEAR (CLEAR); URINE BILIRUBIN NEG (NEG); URINE COLOR YELLOW; URINE NITRITE NEG (NEG); URINE SPECIFIC GRAVITY > 1.045 (1.000-1.030); UROBILINOGEN NEG (NEG); ZZUR CULT IF INDIC CLEAN CATCH NO
[2017-05-18 17:34] VITALS: BP 110/69; PULSE 123; TEMP 38; O2SAT 91; Ht 182.9 cm; Wt 99.7 kg
[2017-05-18 17:41] LABS: MANUAL MICROSCOPIC REQUIRED? NO; REVIEW REQ? NO
[2017-05-18 19:34] VITALS: BP 110/67; PULSE 114; TEMP 39.3; O2SAT 91
[2017-05-18] MEDS: ATORVASTATIN 10 MG TAB PO SCH (21:25)
[2017-05-18] MEDS ORDERED: HEPARIN SOD 5000 UNIT/0.5 ML CARP SQ SCH (22:00)
[2017-05-18] MEDS: METRONIDAZOLE / NSS 500 MG in PREMIXED NSS 100 ML IV SCH (22:24)
[2017-05-18] MEDS ORDERED: HEPARIN IV BOLUS 7,000 UNIT in SYRINGE 0 ML IV ONE (22:30)
[2017-05-18 22:33] VITALS: TEMP 37.6
[2017-05-18] MEDS: HEPARIN 25,000 UNIT/500ML D5W 500 ML IV PRN (23:03)
[2017-05-18 23:12] VITALS: BP 91/53; PULSE 113; TEMP 37.7; O2SAT 92
[2017-05-19] VITALS: O2SAT 91
[2017-05-19 03:56] VITALS: BP 126/78; PULSE 96; TEMP 37; O2SAT 93
[2017-05-19 04:00] VITALS: O2SAT 91
[2017-05-19] MEDS: MoRPHine SULFATE 4 MG/ML 1 ML CARP\\VIAL IV PRN ×3 (04:05→18:35)
[2017-05-19] MEDS: SODIUM CHLORIDE 0.9% 1000ML 1,000 ML IV SCH (06:01)
[2017-05-19] MEDS: CIPROFLOXACIN / D5W 400 MG in PREMIXED IN D5W 200 ML IV SCH ×2 (06:01→18:32)
[2017-05-19 06:38] LABS: BASO % 0.1 %; BASO ABS # 0.01 K/uL (0-0.2); COMPLETE YES; HEMATOCRIT 35.7 % (42-52); IG% 0.4 %; LYMPH % 7.2 %; LYMPH ABS # 1.12 K/uL (1.2-3.4); MEAN CELL VOLUME 89.7 fL (80-100); MEAN CORPUSCULAR HEMOGLOBIN 29.4 pg (25-34); MEAN CORPUSCULAR HGB CONC 32.8 g/dl (32-36); MEAN PLATELET VOLUME 9.3 fL (7.4-10.4); MONO % 9.7 %; NEUT % 82.6 %; PLATELET COUNT 180 K/uL (130-400); RED BLOOD COUNT 3.98 M/uL (4.7-6.1); WHITE BLOOD COUNT 15.46 K/uL (4.8-10.8)
[2017-05-19 07:01] LABS: PARTIAL THROMBOPLASTIN RATIO 4.9
--- NOTE | 2017-05-19 07:05 | DIAGNOSTIC IMAGING REPORT ---
VENOUS DOPPLER LWR EXT BILA CLINICAL HISTORY: 56 years-old Male presenting with SOB, pleuritic chest pain, elevated D-dimer. TECHNIQUE: Real-time grayscale and color and spectral Doppler ultrasound imaging of the veins of the bilateral lower extremities was performed. Compression and augmentation were also utilized. COMPARISON: None. FINDINGS: Right: Common femoral vein: Patent. Femoral vein: Patent. Greater saphenous vein: Patent. Popliteal vein: Patent. Calf veins: Patent. Left: Common femoral vein: Patent. Femoral vein: Patent. Greater saphenous vein: Patent. Popliteal vein: Patent. Calf veins: Limited visualization. Other: None. IMPRESSION: No evidence of deep venous thrombosis. Electronically signed by: Neo Ulloa M.D. 05/19/2017 7:04 AM Dictated Date/Time: 05/19/2017 7:03 AM
[2017-05-19 07:08] LABS: BUN/CREATININE RATIO 12.1 (10-20); CREATININE 1.4 mg/dl (0.60-1.40); POTASSIUM 3.6 mmol/L (3.5-5.1)
[2017-05-19] MEDS: METRONIDAZOLE / NSS 500 MG in PREMIXED NSS 100 ML IV SCH ×3 (07:12→23:31)
[2017-05-19] MEDS: HEPARIN 25,000 UNIT/500ML D5W 500 ML IV PRN (08:46)
[2017-05-19 11:28] VITALS: BP 115/75; PULSE 93; TEMP 36.8; O2SAT 92
--- NOTE | 2017-05-19 13:28 | Progress Note ---
Subjective Date of Service: May 19, 2017. Subjective Pt evaluation today including: conversation w/ patient, conversation w/ family , physical exam, lab review, review of studies, review of inpatient medication list Saw/examined the patient in room 289 He presented to the ER with abdominal pain; fevers/chills, shortness of breath States that his symptoms are slightly improving Tolerating clears breathing is much improved V/Q scan pending, he has not gone down for that yet Review of Systems Constitutional: + fever, + chills, No weakness, No fatigue Respiratory: No cough, No sputum, No shortness of breath (resolved) Cardiac: No chest pain Abdomen: + pain, No nausea, No vomiting, No diarrhea Heme: No abnormal bleeding/bruising Medications Current Inpatient Medications Medications (Trade) Dose Ordered Sig/Patrick Route Start Time Stop Time Status Last Admin Dose Admin Ioversol (Optiray 320) 100 ml UD PRN IV 05/18/17 12:00 05/22/17 11:59 Acetaminophen (Tylenol Tab) 650 mg Q4H PRN PO 05/18/17 16:00 06/17/17 15:59 05/18/17 21:25 650 MG Ondansetron HCl (Zofran Inj) 4 mg Q6H PRN IV 05/18/17 16:00 06/17/17 15:59 05/19/17 08:44 4 MG Sodium Chloride 1,000 ml @ 125 mls/hr Q8H IV 05/18/17 16:00 06/17/17 15:59 05/19/17 06:01 125 MLS/HR Ciprofloxacin/ Dextrose 400 mg/ Prmx 200 ml @ 100 mls/hr Q12H IV 05/19/17 06:00 05/29/17 05:59 05/19/17 06:01 100 MLS/HR Metronidazole 500 mg/Prmx 100 ml @ 100 mls/hr Q8H IV 05/18/17 23:00 05/28/17 22:59 05/19/17 07:12 100 MLS/HR Morphine Sulfate (MoRPHine SULFATE INJ) 4 mg Q4H PRN IV 05/18/17 16:00 06/01/17 15:59 05/19/17 08:45 4 MG Atorvastatin Calcium (Lipitor Tab) 10 mg HS PO 05/18/17 21:00 06/17/17 20:59 05/18/17 21:25 10 MG Heparin Sodium/ Dextrose 500 ml @ 26 mls/hr [id number] PRN IV 05/18/17 22:30 06/17/17 22:29 05/19/17 08:46 26 MLS/HR Objective Vital Signs Date Time Temp Pulse Resp B/P (MAP) Pulse Ox O2 Delivery O2 Flow Rate FiO2 05/19/17 12:43 Room Air 05/19/17 11:28 36.8 93 20 115/75 (88) 92 Room Air 05/19/17 08:00 Room Air 05/19/17 04:00 91 Room Air 05/19/17 03:56 37.0 96 18 126/78 (94) 93 Room Air 05/19/17 00:00 91 Room Air 05/18/17 23:12 37.7 113 20 91/53 (66) 92 Room Air 05/18/17 22:33 37.6 05/18/17 20:00 Room Air 05/18/17 19:34 39.3 114 20 110/67 (81) 91 Room Air 05/18/17 17:34 38.0 123 20 110/69 91 Room Air 05/18/17 17:00 38.0 123 20 110/69 (83) 91 Room Air 05/18/17 16:21 76 96 05/18/17 15:59 116 20 128/86 92 Room Air 05/18/17 13:35 110 20 131/81 96 Room Air Physical Exam General Appearance: no apparent distress Respiratory/Chest: chest non-tender, lungs clear, normal breath sounds, no respiratory distress, no accessory muscle use Cardiovascular: regular rate, rhythm, no edema, no murmur Abdomen: normal bowel sounds, soft, + tenderness Neurologic/Psychiatric: no motor/sensory deficits, alert, normal mood/affect Laboratory Results Last 24 Hours Test 05/18/17 15:47 05/18/17 17:05 05/18/17 18:38 05/18/17 18:39 Lactic Acid Level 1.4 mmol/L Urine Color YELLOW Urine Appearance CLEAR Urine pH 5.0 Urine Specific [place] > 1.045 Urine Protein 1+ Urine Glucose (UA) NEG Urine Ketones 1+ Urine Occult Blood TRACE Urine Nitrite NEG Urine Bilirubin NEG Urine Urobilinogen NEG Urine Leukocyte Esterase NEG Urine WBC (Auto) 1-5 /hpf Urine RBC (Auto) 0-4 /hpf Urine Hyaline Casts (Auto) 1-5 /lpf Urine Epithelial Cells (Auto) 5-10 /lpf Urine Bacteria (Auto) NEG Troponin I < 0.015 ng/ml D-Dimer 2710 ug/L FEU Test 05/19/17 06:21 White Blood Count 15.46 K/uL Red Blood Count 3.98 M/uL Hemoglobin 11.7 g/dL Hematocrit 35.7 % Mean Corpuscular Volume 89.7 fL Mean Corpuscular Hemoglobin 29.4 pg Mean Corpuscular Hemoglobin Concent 32.8 g/dl Platelet Count 180 K/uL Mean Platelet Volume 9.3 fL Neutrophils (%) (Auto) 82.6 % Lymphocytes (%) (Auto) 7.2 % Monocytes (%) (Auto) 9.7 % Eosinophils (%) (Auto) 0.0 % Basophils (%) (Auto) 0.1 % Neutrophils # (Auto) 12.77 K/uL Lymphocytes # (Auto) 1.12 K/uL Monocytes # (Auto) 1.50 K/uL Eosinophils # (Auto) 0.00 K/uL Basophils # (Auto) 0.01 K/uL RDW Standard Deviation 46.0 fL RDW Coefficient of Variation 13.9 % Immature Granulocyte % (Auto) 0.4 % Immature Granulocyte # (Auto) 0.06 K/uL Activated Partial Thromboplast Time 126.3 SECONDS Partial Thromboplastin Ratio 4.9 Sodium Level 136 mmol/L Potassium Level 3.6 mmol/L Chloride Level 104 mmol/L Carbon Dioxide Level 25 mmol/L Anion Gap 7.0 mmol/L Blood Urea Nitrogen 17 mg/dl Creatinine 1.40 mg/dl Est Creatinine Clear Calc Drug Dose 72.0 ml/min Estimated GFR () 64.6 Estimated GFR (Non- 55.8 BUN/Creatinine Ratio 12.1 Random Glucose 150 mg/dl Calcium Level 8.0 mg/dl Assessment and Plan This is a 56 year old male with a PMH of hyperlipidemia presents with acute diverticulitis Acute Ascending Colonic Diverticulitis patient with known diverticulosis on colonoscopy previously presents with fevers/chills, abdominal pain CT shows acute diverticulitis of ascending colon started on a clear liquid diet and IVFs which we can continue today Cipro + Flagyl WBC trending down, will recheck in AM; monitor for fevers outpatient colonoscopy in 4-6 weeks Shortness of Breath; r/o PE possibly the breathing issue is more related to the diverticulitis, especially given it's R sided location d-dimer elevated b/l LE DVT = negative V/Q scan pending can d/c IV heparin if V/Q is negative DVT ppx IV heparin for now FULL CODE
--- NOTE | 2017-05-19 14:39 | DIAGNOSTIC IMAGING REPORT ---
NUCLEAR MEDICINE VENTILATION/PERFUSION STUDY CLINICAL HISTORY: pleur tic chest pain, SOB, elevated D-dimer COMPARISON STUDY: Chest x-ray dated 05/18/2017 FINDINGS: The patient was ventilated utilizing 31.6 mCi of technetium 99m DTPA aerosol. The patient essentially perfused utilizing 5.2 mCi of technetium 99m MAA. There is slight heterogeneity in the perfusion scan. There are no moderate or large VQ mismatches. This study is of low probability for acute pulmonary embolism. IMPRESSION: Low probability of acute pulmonary embolism Electronically signed by: Jose Carlos Walker M.D. 05/19/2017 2:37 PM Dictated Date/Time: 05/19/2017 2:08 PM
[2017-05-19 15:11] VITALS: BP 109/67; PULSE 101; TEMP 37.1; O2SAT 94
[2017-05-19 20:31] VITALS: BP 127/79; PULSE 101; TEMP 37.5; O2SAT 92
[2017-05-19] MEDS: ATORVASTATIN 10 MG TAB PO SCH (21:02)
[2017-05-19] MEDS: HEPARIN SOD 5000 UNIT/0.5 ML CARP SQ SCH (21:03)
[2017-05-20 05:58] LABS: HEMATOCRIT 33.2 % (42-52); MEAN CELL VOLUME 88.3 fL (80-100); MEAN CORPUSCULAR HEMOGLOBIN 29.8 pg (25-34); MEAN CORPUSCULAR HGB CONC 33.7 g/dl (32-36); MEAN PLATELET VOLUME 9.5 fL (7.4-10.4); PLATELET COUNT 171 K/uL (130-400); RED BLOOD COUNT 3.76 M/uL (4.7-6.1); WHITE BLOOD COUNT 12.99 K/uL (4.8-10.8)
[2017-05-20] MEDS: HEPARIN SOD 5000 UNIT/0.5 ML CARP SQ SCH ×2 (06:00→13:56)
[2017-05-20] MEDS: METRONIDAZOLE / NSS 500 MG in PREMIXED NSS 100 ML IV SCH (06:10)
[2017-05-20] MEDS: CIPROFLOXACIN / D5W 400 MG in PREMIXED IN D5W 200 ML IV SCH (06:10)
[2017-05-20 06:39] LABS: BUN/CREATININE RATIO 11.4 (10-20); CALCIUM 8.2 mg/dl (8.5-10.1); CREATININE 1.2 mg/dl (0.60-1.40); MAGNESIUM 2.1 mg/dl (1.8-2.4); POTASSIUM 3.5 mmol/L (3.5-5.1)
[2017-05-20 06:42] LABS: CHOLESTEROL/HDL RATIO 2.1
[2017-05-20 07:53] VITALS: BP 123/81; PULSE 97; TEMP 36.9; O2SAT 93
[2017-05-20 08:57] VITALS: O2SAT 93
[2017-05-20] MEDS ORDERED: METRONIDAZOLE 500 MG TAB PO SCH (14:00)
--- NOTE | 2017-05-20 14:17 | Progress Note ---
Subjective Date of Service: May 20, 2017. Subjective Pt evaluation today including: conversation w/ patient, physical exam, lab review, review of studies, review of inpatient medication list Saw/examined the patient in room 257 He's doing well, his abdominal pain has improved no fevers/chills +BM tolerating clears Review of Systems Constitutional: No fever, No chills Respiratory: No shortness of breath Cardiac: No chest pain Abdomen: + pain (improving), No nausea, No vomiting, No diarrhea, No constipation Heme: No abnormal bleeding/bruising Medications Current Inpatient Medications Medications (Trade) Dose Ordered Sig/Patrick Route Start Time Stop Time Status Last Admin Dose Admin Acetaminophen (Tylenol Tab) 650 mg Q4H PRN PO 05/18/17 16:00 06/17/17 15:59 05/18/17 21:25 650 MG Ondansetron HCl (Zofran Inj) 4 mg Q6H PRN IV 05/18/17 16:00 06/17/17 15:59 05/19/17 08:44 4 MG Morphine Sulfate (MoRPHine SULFATE INJ) 4 mg Q4H PRN IV 05/18/17 16:00 06/01/17 15:59 05/19/17 18:35 4 MG Atorvastatin Calcium (Lipitor Tab) 10 mg HS PO 05/18/17 21:00 06/17/17 20:59 05/19/17 21:02 10 MG Heparin Sodium (Porcine) (Heparin Sq 5000 Unit/0.5ml) 5,000 unit Q8 SQ 05/19/17 22:00 06/18/17 21:59 Ciprofloxacin (Cipro Tab) 500 mg BID PO 05/20/17 21:00 05/28/17 23:59 Metronidazole (Flagyl Tab) 500 mg TID PO 05/20/17 14:00 05/28/17 23:59 05/20/17 14:07 500 MG Objective Vital Signs Date Time Temp Pulse Resp B/P (MAP) Pulse Ox O2 Delivery O2 Flow Rate FiO2 05/20/17 08:57 93 Room Air 05/20/17 07:53 36.9 97 18 123/81 (95) 93 Room Air 05/20/17 00:00 Room Air 05/19/17 20:31 37.5 101 18 127/79 (95) 92 Room Air 9/13/17 16:20 Room Air 05/19/17 15:11 37.1 101 16 109/67 (81) 94 Room Air Physical Exam General Appearance: no apparent distress Respiratory/Chest: no respiratory distress, no accessory muscle use Cardiovascular: regular rate, rhythm Abdomen: normal bowel sounds, soft, + tenderness Extremities: normal inspection, no pedal edema Neurologic/Psychiatric: no motor/sensory deficits, alert, normal mood/affect Laboratory Results Last 24 Hours Test 05/20/17 05:17 White Blood Count 12.99 K/uL Red Blood Count 3.76 M/uL Hemoglobin 11.2 g/dL Hematocrit 33.2 % Mean Corpuscular Volume 88.3 fL Mean Corpuscular Hemoglobin 29.8 pg Mean Corpuscular Hemoglobin Concent 33.7 g/dl RDW Standard Deviation 44.6 fL RDW Coefficient of Variation 13.7 % Platelet Count 171 K/uL Mean Platelet Volume 9.5 fL Sodium Level 139 mmol/L Potassium Level 3.5 mmol/L Chloride Level 106 mmol/L Carbon Dioxide Level 25 mmol/L Anion Gap 8.0 mmol/L Blood Urea Nitrogen 14 mg/dl Creatinine 1.20 mg/dl Est Creatinine Clear Calc Drug Dose 84.0 ml/min Estimated GFR () 77.9 Estimated GFR (Non- 67.2 BUN/Creatinine Ratio 11.4 Random Glucose 98 mg/dl Calcium Level 8.2 mg/dl Magnesium Level 2.1 mg/dl Triglycerides Level 93 mg/dl Cholesterol Level 103 mg/dl HDL Cholesterol 49 mg/dl LDL Cholesterol, Calculated 35 mg/dl VLDL Cholesterol, Calculated 19 mg/dl Cholesterol/HDL Ratio 2.1 Assessment and Plan This is a 56 year old male with a PMH of hyperlipidemia presents with acute diverticulitis Acute Ascending Colonic Diverticulitis 05/20 WBC trending down pain improved will advance diet if tolerating it, can d/c home with Cipro + Flagyl low fiber diet outpatient colonoscopy in 4-6 weeks 05/19 patient with known diverticulosis on colonoscopy previously presents with fevers/chills, abdominal pain CT shows acute diverticulitis of ascending colon started on a clear liquid diet and IVFs which we can continue today Cipro + Flagyl WBC trending down, will recheck in AM; monitor for fevers outpatient colonoscopy in 4-6 weeks Shortness of Breath; r/o PE - PE ruled out; IV heparin stopped possibly the breathing issue is more related to the diverticulitis, especially given it's R sided location d-dimer elevated b/l LE DVT = negative V/Q scan pending can d/c IV heparin if V/Q is negative DVT ppx IV heparin for now FULL CODE
[2017-05-20 15:34] VITALS: BP 126/81; PULSE 97; TEMP 37.1; O2SAT 94
[2017-05-20] MEDS ORDERED: ULT50X PO ×2 (17:31→17:32)
[2017-05-20] MEDS ORDERED: CPR500 PO (17:31)
[2017-05-20] MEDS ORDERED: MTR500 PO (17:31)
[2017-05-20 17:42] VITALS: BP 126/81; PULSE 97; TEMP 37.1; O2SAT 94
--- NOTE | 2017-05-20 17:44 | Discharge Instructions ---
Discharge Instructions Date of Service May 20, 2017. Admission Reason for Admission: Diverticulitis, Tachycardia Discharge Discharge Diagnosis / Problem: Acute Diverticulitis Discharge Goals Goal(s): Decrease discomfort, Improve function, Diagnostic testing, Therapeutic intervention Activity Recommendations Activity Limitations: resume your previous activity . Instructions / Follow-Up Instructions / Follow-Up Please follow-up with Dr. Umanzor on May 24 at 1:05PM * You will be discharged with Cipro and Flagyl (antibiotics) - take these for the next seven days as prescribed * Take Tramadol only as needed for pain - if you take it, do not drive * Repeat CBC (blood work) should be done on Wednesday to check your white blood cell count * Start with a low fiber diet and continue this for 10-14 days before going to a high fiber diet * You will need a colonoscopy around 6 weeks after this episode of diverticulitis has resolved Current Hospital Diet Patient's current hospital diet: Regular Diet Discharge Diet Recommended Diet: Low Fiber Diet Pending Studies Studies pending at discharge: no Laboratory Results Lipid Panel Test 05/20/17 05:17 Range/Units Triglycerides Level 93 0-150 mg/dl Cholesterol Level 103 0-200 mg/dl HDL Cholesterol 49 mg/dl Cholesterol/HDL Ratio 2.1 LDL Cholesterol, Calculated 35 mg/dl Medical Emergencies . Who to Call and When: Medical Emergencies: If at any time you feel your situation is an emergency, please call 911 immediately. . Non-Emergent Contact Non-Emergency issues call your: Primary Care Provider . . "Provider Documentation" section prepared by Valentina Ortiz. . VTE Core Measure Inpt VTE Proph given/why not?: Unfractionated heparin SQ, Other Anticoagulation (initially IV heparin) [place] Drug Monitoring Program Search Results: patient reviewed within database, no issues identified
--- NOTE | 2017-05-20 17:48 | Discharge Summary ---
Discharge Summary Date of Service May 20, 2017. Discharge Summary Admission Date: May 18, 2017 at 15:49 Discharge Date: May 20, 2017 Discharge Disposition: Home Principal Diagnosis: Acute Ascending Colonic Diverticulitis Medication Reconciliation New Medications: Tramadol HCl (Tramadol HCl) 50 Mg Tab 50 MG PO Q6 PRN for Pain for 3 Days, #12 TAB Ciprofloxacin (Ciprofloxacin HCl) 500 Mg Tab 500 MG PO BID for 7 Days, #14 TAB Metronidazole (Metronidazole) 500 Mg Tab 500 MG PO TID for 7 Days, #21 TAB Continued Medications: Atorvastatin (Lipitor) 10 Mg Tab 10 MG PO HS, TAB Admission Information HPI (per Admitting provider): This is a 56 year old male with PMH of right nephrectomy for nonfunctional kidney, 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 Onset was yesterday morning. He describes pain located in periumbilical area. He reports associated N/V (mostly dry heaving), fever (Tmax 99.9 this AM), and chills. He was last able to tolerate solid food 2 days ago. Took in small amount of fluid yesterday, but then only ice chips. Bowel movements have been soft formed. Voiding smaller amount than usual today. Patient also admits to sharp chest discomfort on the right side, non-radiating, which started at 10 am while in bed. Chest discomfort has been constant but increases with deep inspiration. Admits to SOB starting this morning, especially with pain or movement. No HAGEN at baseline, climbs stairs without SOB. No recent cough. Denies increased rhinorrhea from baseline. Denies dizziness, dysuria, frequency, urgency, difficulty voiding, darkened urine, hematochezia, melena, LE edema, calf pain, rash. Has chronic right lower back pain. He reports lifting heavy objects for tailgating 3 days ago. No hx of cardiac disorder or VTE. Last colonoscopy by Dr. Cormier in 09/2013 showed diverticulosis in sigmoid colon and descending colon. No other abdominal surgeries. Physical Exam (per Admitting): General Appearance: WD/WN, no apparent distress Head: normocephalic, atraumatic Eyes: normal inspection, sclerae normal ENT: hearing grossly normal, pharynx normal Neck: supple, trachea midline Respiratory/Chest: lungs clear, normal breath sounds, no respiratory distress, no accessory muscle use, + pertinent finding (+ right chest wall tenderness) Cardiovascular: no murmur, + tachycardia (regular rhythm) Abdomen/GI: normal bowel sounds, soft, + pertinent finding (tender in RLQ) Back: + pertinent finding (+ right lumbar paraspinal muscle tenderness. no CVA tenderness on the left. ) Extremities/Musculoskelatal: no calf tenderness, no pedal edema Neurologic/Psych: alert, normal mood/affect, oriented x 3 Skin: normal color, warm/dry, no rash (no rash on chest) Hospital Course This is a 56 year old male with a PMH of hyperlipidemia presents with acute diverticulitis Acute Ascending Colonic Diverticulitis 05/20 WBC trending down pain improved will advance diet if tolerating it, can d/c home with Cipro + Flagyl low fiber diet outpatient colonoscopy in 4-6 weeks 05/19 patient with known diverticulosis on colonoscopy previously presents with fevers/chills, abdominal pain CT shows acute diverticulitis of ascending colon started on a clear liquid diet and IVFs which we can continue today Cipro + Flagyl WBC trending down, will recheck in AM; monitor for fevers outpatient colonoscopy in 4-6 weeks Shortness of Breath; r/o PE - PE ruled out; IV heparin stopped possibly the breathing issue is more related to the diverticulitis, especially given it's R sided location d-dimer elevated b/l LE DVT = negative V/Q scan pending can d/c IV heparin if V/Q is negative DVT ppx IV heparin for now FULL CODE Total time spent on discharge = 35 minutes This includes examination of the patient, discharge planning, medication reconciliation, and communication with other providers. Discharge Instructions Please follow-up with Dr. Umanzor on May 24 at 1:05PM * You will be discharged with Cipro and Flagyl (antibiotics) - take these for the next seven days as prescribed * Take Tramadol only as needed for pain - if you take it, do not drive * Repeat CBC (blood work) should be done on Wednesday to check your white blood cell count * Start with a low fiber diet and continue this for 10-14 days before going to a high fiber diet * You will need a colonoscopy around 6 weeks after this episode of diverticulitis has resolved
[2017-05-20] MEDS ORDERED: CIPROFLOXACIN 500 MG TAB PO SCH (21:00)
== END 2017-05-20 18:42 | disposition home or self-care (01) | DRG 392 ==
LOC: C.EDB 11:03 → C.MED 15:49 → ENRESERV 16:13 → C.MS2W 05-19 21:37
PROVIDERS: ADMIT Hospitalist; ATTEND Family Medicine
DX: K57.32 Diverticulitis of large intestine without perforation or abscess without bleeding (principal); Z90.5 Acquired absence of kidney; Z85.54 Personal history of malignant neoplasm of ureter; E78.5 Hyperlipidemia, unspecified; R07.81 Pleurodynia; R00.0 Tachycardia, unspecified; N18.3 Chronic kidney disease, stage 3 (moderate); R06.02 Shortness of breath

== ENCOUNTER → 2017-08-26 | Outpatient (CLI) | payer OTHER ==
[~2017-08-26] MED LIST changes: -ACET-749 PO; +ATOR10TA82 PO; -ATOR10TA88 PO; -CIPR-255 PO; -CLC100 PO; +CPR500 PO; -DTR5 PO; +GADAVIST IV PRN; +MTR500 PO; +ULT50X PO
--- NOTE | 2017-08-26 09:30 | DIAGNOSTIC IMAGING REPORT ---
MRI THE PELVIS WITHOUT AND WITH GADOLINIUM CLINICAL HISTORY: BLADDER CA, R/O BONE METS COMPARISON STUDY: Outside CT scan dated 08/23/2017 FINDINGS: Imaging was performed in the axial and coronal planes, before and after the administration of 9 cc of intravenous Gadavist. There is colonic diverticulosis. There is no evidence of pathologic pelvic lymphadenopathy. There is a 13 mm rounded area of marrow replacement involving the right acetabulum. This corresponds to a sclerotic lesion on the most recent CT scan. This lesion is of decreased signal on T1-weighted imaging, and of increased signal on T2-weighted imaging. There is mild post gadolinium enhancement. This lesion was barely perceptible on an outside CT scan performed July 2016. This lesion is viewed as highly suspicious for a blastic metastasis. There is mild asymmetric bladder wall thickening IMPRESSION: 1. 13 mm lesion within the right acetabulum, highly suspicious for a blastic metastasis. 2. No evidence of pathologic adenopathy 3. Sigmoid diverticulosis 4. Mild slightly asymmetric bladder wall thickening Electronically signed by: Jose Carlos Walker M.D. 08/26/2017 9:28 AM Dictated Date/Time: 08/26/2017 9:19 AM
== END | disposition home or self-care (01) ==
LOC: C.MRIBC 08:16
PROVIDERS: ATTEND Urology
DX: D49.4 Neoplasm of unspecified behavior of bladder (principal); M89.9 Disorder of bone, unspecified; K57.30 Diverticulosis of large intestine without perforation or abscess without bleeding; R93.41 Abnormal radiologic findings on diagnostic imaging of renal pelvis, ureter, or bladder

== ENCOUNTER → 2017-11-03 | Outpatient (CLI) | payer OTHER ==
[~2017-11-03] MED LIST changes: -GADAVIST IV PRN
--- NOTE | 2017-11-03 10:48 | DIAGNOSTIC IMAGING REPORT ---
PET/CT SKULL-THIGH HISTORY: Renal carcinoma KIDNEY CANCER TECHNIQUE: PET/CT was performed from the base of the skull through the pelvis following the intravenous administration of 15.4 mCi of [id number]. Non-contrast CT imaging was performed over the same range without breath-hold for attenuation correction of PET images and anatomic correlation, but not for primary interpretation as it is not of standard diagnostic quality. CT DOSE: COMPARISON: MRI pelvis 08/26/2017 CT abdomen and pelvis 08/23/2017 FINDINGS: HEAD AND NECK: There is no FDG-avid disease or significant lymphadenopathy in the imaged portions of the head and the neck. CHEST: There is no FDG-avid disease in the chest. There is no axillary, mediastinal, or hilar lymphadenopathy. There is no pleural or pericardial effusion. There is no air-space disease or suspicious lung nodule. ABDOMEN/PELVIS: Below the diaphragm, tracer is distributed physiologically in the gastrointestinal and genitourinary tracts. There is no significant lymphadenopathy and no FDG-avid disease. MUSCULOSKELETAL: 1.1 cm focus of increased metabolic activity superior aspect of the mid L1 vertebral body. SUV characteristics are approximately 4.7. Small round focus of increased metabolic activity within the right acetabulum appears described with SUVs of 3.1 IMPRESSION: 1. Findings consistent with metastatic deposits involving the L1 vertebral body as well as the right acetabulum. 2. Study is otherwise unremarkable post right nephrectomy. The above report was generated using voice recognition software. It may contain grammatical, syntax or spelling errors. Electronically signed by: Andrea Ponce M.D. 11/03/2017 10:47 AM Dictated Date/Time: 11/03/2017 10:34 AM
== END | disposition home or self-care (01) ==
LOC: C.PET 08:14
PROVIDERS: ATTEND Internal Medicine Hematology & Oncology
DX: C66.1 Malignant neoplasm of right ureter (principal)

== ENCOUNTER 2017-12-02 05:19 | Day surgery (SDC) | payer OTHER ==
[2017-12-01 10:32] VITALS: Ht 182.9 cm; Wt 97.7 kg
[~2017-12-02] VITALS: Ht 182.9 cm; Wt 97.7 kg
[~2017-12-02 05:19] MED LIST changes: -CPR500 PO; -MTR500 PO; -ULT50X PO
[2017-12-02 05:44] VITALS: BP 143/83; PULSE 84; TEMP 36.6; O2SAT 96
[2017-12-02] MEDS ORDERED: CEFAZOLIN 2000MG IV PUSH 15 ML IV SCH (06:00)
[2017-12-02] MEDS ORDERED: LACTATED RINGER'S 1000ML 1,000 ML IV SCH (06:00)
[2017-12-02] MEDS ORDERED: ONDANSETRON INJ 2 MG/ML 2 ML VIAL IV PRN ×2 (06:15→08:15)
[2017-12-02] MEDS ORDERED: EpHEDrine SULFATE INJ 50 MG/ML AMP IV PRN (06:15)
[2017-12-02] MEDS ORDERED: FENTANYL CITRATE INJ 50 MCG/1 ML 2 ML VIAL IV PRN (06:15)
[2017-12-02] MEDS ORDERED: ATROPINE SULFATE 0.1 MG/ML 5ML SYR IV PRN (06:15)
[2017-12-02] MEDS ORDERED: PROMETHAZINE HCL INJ 12.5 MG in SODIUM CHLORIDE 0.9% 50ML 50 ML IV PRN (06:15)
[2017-12-02] MEDS ORDERED: HYDROmorphone INJ 1 MG/ML SYR IV PRN (06:15)
[2017-12-02] MEDS ORDERED: HEPARIN SOD (PORCINE) 1000 UNIT/ML 10 ML VIAL ONE (06:41)
[2017-12-02] MEDS ORDERED: BUPIVACAINE 0.5 % 5 MG/1 ML MPF 30ML VIAL ONE (06:41)
[2017-12-02] MEDS ORDERED: LIDOCAINE/EPINEPHRINE 1% 20 ML VIAL ONE (06:42)
[2017-12-02] MEDS ORDERED: FENTANYL CITRATE INJ 50 MCG/1 ML 2 ML VIAL ONE (06:45)
[2017-12-02] MEDS ORDERED: MIDAZOLAM HCL 1 MG/ML 2ML VIAL ONE ×2 (06:45→07:10)
--- NOTE | 2017-12-02 07:00 | History & Physical Bridge Note ---
H&P Re-Evaluation Bridge Note: I have examined the patient, reviewed the History & Physical and in the interval since the performance of the History & Physical I have noted the following changes of clinical significance: No changes noted
[2017-12-02] MEDS ORDERED: PROPOFOL IV EMULSION 10 MG/ML 20 ML VIAL IV ONE ×2 (07:12→07:43)
[2017-12-02] MEDS ORDERED: LIDOCAINE HCL 2% 2 ML VIAL (20MG/ML) ONE (07:12)
--- NOTE | 2017-12-02 07:56 | [facility] Post Operative Brief Note ---
Immediate Operative Summary Operative Date Dec 02, 2017. Pre-Operative Diagnosis Ureteral and bladder cancer; need for venous access Post-Operative Diagnosis Same as preop Procedure(s) Performed Insertion of Mediport into left internal jugular vein with real-time ultrasound guidance and fluoroscopy Surgeon Dr. Zamudio Spinner Hydraulic Surgeon(s) Juan C Brown PA-C Estimated Blood Loss 7 cc Findings Consistent with Post-Op Diagnosis Specimens none, as per surgeon Drains None Anesthesia Type MAC Complication(s) none Disposition Accompanied Pt To Recover: no Disposition: Recovery Room / PACU
--- NOTE | 2017-12-02 08:00 | [facility] Operative Report ---
Operative Report Operative Date Dec 02, 2017. Pre-Operative Diagnosis Ureteral and bladder cancer; need for venous access Post-Operative Diagnosis Same Procedure(s) Performed Placement of left internal jugular vein port with real-time ultrasound guidance and fluoroscopy Surgeon Dr. Zamudio Egg Producer Surgeon(s) Juan C Brown PA-C Estimated Blood Loss 7 cc Findings Left internal jugular vein accessed using real-time ultrasound guidance. Port placed at cavoatrial junction, good placement on fluoroscopy. Specimens none, as per surgeon Drains None Anesthesia MAC/local Complication(s) None Disposition Recovery Room / PACU Indications 56-year-old male with ureteral and bladder cancer, plan for port placement. The risks of the procedure were discussed, all questions were answered, and the patient agreed to proceed with surgery as planned. Description of Procedure The patient was properly identified, consented, and taken to the operating room where he was placed in the supine position with both arms tucked and a shoulder roll placed vertically. Monitored anesthesia care was induced. SCDs and a safety belt were placed. Preoperative antibiotics were administered. The patient's chest and neck was prepped and draped in the standard sterile fashion. Surgical timeout was performed and all parties were in agreement that this was the correct patient and procedure to be performed and we continued as planned. The patient was placed in Trendelenburg position. Local anesthetic was injected along the skin incision. Using real-time ultrasound guidance the left internal jugular vein was accessed using the access needle. The wire was placed and the needle was removed. Fluoroscopy confirmed placement into the internal jugular vein extending into the superior vena cava. A transverse skin incision was made in the left chest and a pocket was created for the port. A subcutaneous tunnel was created and the catheter was brought from the neck incision into the chest incision. The dilator and peel-away sheath were inserted over the wire. The catheter was then inserted through the peel-away sheath and fluoroscopy confirmed placement into the superior vena cava. The catheter was cut and attached to the port. The port was secured into place with 3-0 Prolene sutures. A final x-ray revealed good placement of the port. The wound was irrigated and hemostasis was confirmed. The skin was closed with interrupted 3-0 Vicryl deep dermal sutures, followed by 4-0 Monocryl running subcuticular suture. Dermabond was placed over the wound. The port was accessed and balta blood easily and flushed easily. It was flushed with heparinized saline. The patient taken to the PACU where he recovered without apparent incident. All sponge, instrument and needle counts were correct at the conclusion of the procedure. The patient tolerated the procedure well. The physician's family medicine physician assistant was present and scrubbed for the entirety of the case. She was essential in positioning the patient, prepping and draping, retraction and exposure, placement of the port, closure of the wounds, and placement of dressings. I attest to the content of the Intraoperative Record and any orders documented therein. Any exceptions are noted below.
--- NOTE | 2017-12-02 08:03 | [facility] Operative Report ---
Operative Report Operative Date Dec 02, 2017. Pre-Operative Diagnosis Ureteral and bladder cancer; need for venous access Surgeon Dr. Zamudio Findings Real-time ultrasound guidance was used and interpreted by the surgeon for accessing the internal jugular vein. Fluoroscopy was used and interpreted throughout the procedure to aid in placement of the port in positioning. A total of 203.7 seconds of fluoroscopy time was utilized. I attest to the content of the Intraoperative Record and any orders documented therein. Any exceptions are noted below.
[2017-12-02] MEDS ORDERED: SODIUM CHLORIDE 0.9% 1000ML 1,000 ML IV SCH (08:06)
--- NOTE | 2017-12-02 08:10 | Discharge Instructions ---
Discharge Instructions Date of Service Dec 02, 2017. Admission Reason for Admission: Urothelial Carcinoma Discharge Discharge Diagnosis / Problem: Urothelial Carcinoma Discharge Goals Goal(s): Decrease discomfort, Improve function Activity Recommendations Activity Limitations: as noted below Lifting Limitations: no more than 10 pounds Exercise/Sports Limitations: gradually increase as tolerated May Resume Sexual Activity: when tolerated Shower/Bathe: tomorrow Driving or Machine Use: resume 1 day after discharge . Instructions / Follow-Up Instructions / Follow-Up Please call the General Surgery Clinic at [phone] with any questions or concerns. You have surgical glue, Dermabond, over your incision. You may shower tomorrow , but please do not soak or scrub your incisions. You may use over the counter pain medication for pain control. Please use as directed on medication bottle. Current Hospital Diet Patient's current hospital diet: Discharge Diet Recommended Diet: Regular Diet Procedures Procedures Performed: Insertion of Mediport into left internal jugular vein with real-time ultrasound guidance and fluoroscopy Pending Studies Studies pending at discharge: no Medical Emergencies . Who to Call and When: Medical Emergencies: If at any time you feel your situation is an emergency, please call 911 immediately. . Non-Emergent Contact Non-Emergency issues call your: Primary Care Provider, Surgeon Call Non-Emergent contact if: temperature is above 101.5, your pain is not controlled, wound has increased drainage, wound has increased redness . "Provider Documentation" section prepared by Sydnie Brown. .
[2017-12-02] MEDS ORDERED: OXYCODONE/ACETAMINOPHEN 5-325 TAB PO PRN ×2 (08:15)
--- NOTE | 2017-12-02 08:29 | Anesthesiology Progress Note ---
Anesthesia Post Op Note Date & Time Dec 02, 2017 at 08:29 Vital Signs Pain Intensity: 0 Vital Signs Past 12 Hours Date Time Temp Pulse Resp B/P (MAP) Pulse Ox O2 Delivery O2 Flow Rate FiO2 12/02/17 08:25 80 17 126/89 97 Room Air 12/02/17 08:15 81 12 135/93 95 Room Air 12/02/17 08:06 36.0 96 16 148/89 95 Room Air 12/02/17 05:44 36.6 84 18 143/83 (103) 96 Room Air Notes Mental Status: alert / awake / arousable, participated in evaluation Pt Amnestic to Procedure: Yes Nausea / Vomiting: adequately controlled Pain: adequately controlled Airway Patency, RR, SpO2: stable & adequate BP & HR: stable & adequate Hydration State: stable & adequate Anesthetic Complications: no major complications apparent
--- NOTE | 2017-12-02 08:34 | DIAGNOSTIC IMAGING REPORT ---
SINGLE VIEW CHEST CLINICAL HISTORY: Infusion port placement. FINDINGS: An AP, portable, upright chest radiograph is compared to study dated 05/18/2017. The examination is degraded by portable technique and patient rotation. A left internal jugular central venous infusion port has been placed. The tip of the catheter projects over the SVC. The cardiomediastinal silhouette is unremarkable. The lungs and pleural spaces are clear. No pneumothorax is seen. The bony thorax is grossly intact. IMPRESSION: 1. A left internal jugular central venous infusion port has been placed as above. No pneumothorax is seen post procedure. 2. The lungs are clear. Electronically signed by: Miah Ivan M.D. 12/02/2017 8:33 AM Dictated Date/Time: 12/02/2017 8:32 AM
[2017-12-02 08:40] VITALS: BP 145/90; PULSE 89; TEMP 37; O2SAT 98
[2017-12-02 09:10] VITALS: BP 140/73; PULSE 89; TEMP 37; O2SAT 98
== END 2017-12-02 09:20 | disposition home or self-care (01) ==
LOC: C.ACU 05:19
PROVIDERS: ATTEND Surgery
DX: C66.1 Malignant neoplasm of right ureter (principal); D49.4 Neoplasm of unspecified behavior of bladder; E78.5 Hyperlipidemia, unspecified; Z98.52 Vasectomy status; Z79.899 Other long term (current) drug therapy; Z90.5 Acquired absence of kidney; N18.9 Chronic kidney disease, unspecified

== ENCOUNTER → 2017-12-03 | Outpatient (CLI) | payer OTHER ==
--- NOTE | 2017-12-03 11:56 | ECHOCARDIOGRAM REPORT ---
*NOTICE TO RECEIVING [employer] This information is strictly Confidential and protected under [place] law. [place] law prohibits you from making any further disclosure of this information unless further disclosure is expressly permitted by the written consent of the person to whom it pertains or is authorized by law. A general authorization for the release of medical or other information is not sufficient for this purpose. Hospital accepts no responsibility if the information is made available to any other person, INCLUDING THE PATIENT. Interpretation Summary * Name: ALTHEA SCHWAB Study Date: 12/03/2017 10:43 AM BP: 120/84 mmHg * Patient Location: [facility] HR: 82 * : 1960 (M/d/yyyy) Gender: Male Height: 72 in * Age: 56 yrs Ethnicity: CA Weight: 210 lb * Ordering Physician: Mora Jimenez * Referring Physician: Mora Jimenez . ROUTE JUMPER * Performed By: Grisel Stewart RDCS * * Reason For Study: RENAL PELVIS CA, STARTING CHEMO * BSA: 2.2 m2 * -- Conclusions -- * There is moderate concentric left ventricular hypertrophy. * Left ventricular systolic function is normal. * The right ventricle is mildly dilated. * Right ventricular systolic pressure is normal. * Grade I diastolic dysfunction, (abnormal relaxation pattern). Procedure Details * A complete two-dimensional transthoracic echocardiogram was performed (2D, M-mode, Doppler and color flow Doppler). * PATIENT DONE SUPINE, POST PORT PLACEMENT Left Ventricle * The left ventricle is normal in size. * There is moderate concentric left ventricular hypertrophy. * Ejection Fraction = 60-65%. * Left ventricular systolic function is normal. * Grade I diastolic dysfunction, (abnormal relaxation pattern). * The left ventricular wall motion is normal. Right Ventricle * The right ventricle is mildly dilated. * The right ventricular systolic function is normal. * The right ventricular systolic function is normal as assessed by tricuspid annular plane systolic excursion (TAPSE) (normal >1.5 cm). Atria * The left atrial size is normal. * Right atrial size is normal. Mitral Valve * The mitral valve is grossly normal. * Significant mitral regurgitation is absent. Tricuspid Valve * The tricuspid valve is not well visualized, but is grossly normal. * There is mild tricuspid regurgitation. * Right ventricular systolic pressure is normal. Aortic Valve * The aortic valve is normal in structure and function. * No hemodynamically significant valvular aortic stenosis. * There is no significant aortic regurgitation. Pulmonic Valve * The pulmonic valve is not well visualized. Great Vessels * The aortic root is normal size. Pericardium/Pleural * There is no pericardial effusion. MMode 2D Measurements and Calculations IVSd 2.1 cm IVSs 2.5 cm LVIDd 3.4 cm LVIDs 2.2 cm LVPWd 1.6 cm LVPWs 1.5 cm IVS/LVPW 1.3 FS 33.8 % EDV(Teich) 46.5 ml ESV(Teich) 16.8 ml EF(Teich) 63.8 % EDV(cubed) 38.3 ml ESV(cubed) 11.1 ml EF(cubed) 70.9 % % IVS thick 19.3 % % LVPW thick -8.64 % LV mass(C)d 261.5 grams LV mass(C)dI 120.2 grams/m\S\2 LV mass(C)s 187.7 grams LV mass(C)sI 86.3 grams/m\S\2 SV(Teich) 29.7 ml SI(Teich) 13.6 ml/m\S\2 SV(cubed) 27.2 ml SI(cubed) 12.5 ml/m\S\2 Ao root diam 3.2 cm Ao root area 8.1 cm\S\2 LA dimension 2.1 cm LA/Ao 0.65 LVAd ap4 23.6 cm\S\2 LVLd ap4 7.5 cm EDV(MOD-sp4) 63.7 ml EDV(sp4-el) 62.8 ml LVAs ap4 14.1 cm\S\2 LVLs ap4 6.9 cm ESV(MOD-sp4) 26.0 ml ESV(sp4-el) 24.6 ml EF(MOD-sp4) 59.2 % EF(sp4-el) 60.8 % LVAd ap2 28.9 cm\S\2 LVLd ap2 8.8 cm EDV(MOD-sp2) 77.6 ml EDV(sp2-el) 80.3 ml LVAs ap2 15.5 cm\S\2 LVLs ap2 6.9 cm ESV(MOD-sp2) 30.3 ml ESV(sp2-el) 29.7 ml EF(MOD-sp2) 61.0 % EF(sp2-el) 63.0 % LVLd %diff 14.3 % EDV(MOD-bp) 76.1 ml LVLs %diff 0.09 % ESV(MOD-bp) 27.9 ml EF(MOD-bp) 63.4 % SV(MOD-sp4) 37.7 ml SI(MOD-sp4) 17.3 ml/m\S\2 SV(MOD-sp2) 47.3 ml SI(MOD-sp2) 21.8 ml/m\S\2 SV(MOD-bp) 48.2 ml SI(MOD-bp) 22.2 ml/m\S\2 SV(sp4-el) 38.2 ml SI(sp4-el) 17.6 ml/m\S\2 SV(sp2-el) 50.6 ml SI(sp2-el) 23.3 ml/m\S\2 Doppler Measurements and Calculations MV E max raymond 63.5 cm/sec MV A max raymond 72.3 cm/sec MV E/A 0.88 MV dec time 0.27 sec Ao V2 max 124.9 cm/sec Ao max PG 6.2 mmHg Ao max PG (full) 2.8 mmHg LV V1 max PG 3.4 mmHg LV V1 max 92.6 cm/sec TR max raymond 198.1 cm/sec
== END | disposition home or self-care (01) ==
LOC: C.CPL 10:30
PROVIDERS: ATTEND Nurse Practitioner Family
DX: C65.9 Malignant neoplasm of unspecified renal pelvis (principal)

== ENCOUNTER 2017-12-27 15:34 | Inpatient (IN) | payer OTHER ==
[~2017-12-27] VITALS: Ht 182.9 cm; Wt 90.3 kg
[2017-12-27 17:09] VITALS: BP 131/80; PULSE 95; TEMP 36.6; O2SAT 98; BMI 26.9
[2017-12-27] MEDS ORDERED: ONDANSETRON INJ 2 MG/ML 2 ML VIAL IV PRN (17:30)
[2017-12-27] MEDS ORDERED: ACETAMINOPHEN 325 MG TAB PO PRN (17:30)
[2017-12-27] MEDS ORDERED: ONDA-170 PO (17:54)
[2017-12-27] MEDS ORDERED: PROC1TAB5 PO (17:54)
[2017-12-27] MEDS: SODIUM CHLORIDE 0.9% 1000ML 1,000 ML IV SCH (18:00)
--- NOTE | 2017-12-27 18:31 | History and Physical ---
History & Physical Date & Time of Service: Dec 27, 2017 ~ 17:30 Chief Complaint: Dehydration Primary Care Physician: Paulie Umanzor M.D. History of Present Illness 57-year-old male who was sent as a direct admission by the [facility] oncology group for dehydration. Patient has history of ureteral carcinoma with bony metastases. He is currently receiving [facility] chemotherapy. Last treatment was on December 20. Patient reports severe nausea, poor appetite, vomiting/dry heaves since his last treatment. He denies hematemesis or coffee- ground emesis. No abdominal pain or diarrhea. He has not been running any fevers or having chills. He denies chest pain, cough, sputum production. He reports some mild lightheadedness and dizziness but denies any syncopal events. No shortness of breath. He denies any urinary symptoms. Patient was evaluated at the outpatient oncology clinic today and was found to have a creatinine of 2.9. He was referred for direct admission. At the time my exam, patient is resting in bed in no acute distress. Past Medical/Surgical History Medical Problems: (1) Bone metastases Status: Chronic (2) Dyslipidemia Status: Chronic (3) Ureteral carcinoma Status: Chronic Surgical Problems: (1) H/O nephroureterectomy Permanent Comment: right Status: Chronic (2) s/p ureterectomy Status: Chronic Family History Patient reports no known family medical history. No family history of premature CAD Social History Smoking Status: Never Smoker Alcohol Use: occasionally Immunizations History of Influenza Vaccine: Yes Influenza Vaccine Date: Aug 15, 2013 History of Tetanus Vaccine?: Yes Tetanus Immunization Date: Sep 20, 2013 Allergies Coded Allergies: No Known Allergies (Unverified , 12/02/17) Home Medications Scheduled Atorvastatin (Lipitor), 10 MG PO HS Scheduled PRN Ondansetron Hcl (Zofran), 8 MG PO Q8H PRN for Nausea Prochlorperazine Maleate (Compazine), 10 MG PO Q6H PRN for Nausea Review of Systems ROS per HPI, all other systems reviewed and negative Physical Exam Vital Signs Date Time Temp Pulse Resp B/P (MAP) Pulse Ox O2 Delivery O2 Flow Rate FiO2 12/27/17 17:09 36.6 95 18 131/80 98 Room Air General Appearance: WD/WN, no apparent distress Head: normocephalic, atraumatic Eyes: normal inspection, EOMI, sclerae normal ENT: hearing grossly normal, + pertinent finding (Mucous membranes moist) Neck: supple, no JVD, trachea midline Respiratory/Chest: lungs clear, normal breath sounds, no respiratory distress, + pertinent finding (Port in place to left chest, no surrounding erythema or drainage) Cardiovascular: regular rate, rhythm, no edema, normal peripheral pulses Abdomen/GI: normal bowel sounds, non tender, soft, no organomegaly Extremities/Musculoskelatal: normal inspection, no calf tenderness, normal capillary refill Neurologic/Psych: no motor/sensory deficits, alert, normal mood/affect, oriented x 3 Skin: normal color, warm/dry Diagnostics Laboratory Results Results Past 24 Hours Test 12/27/17 17:51 12/27/17 18:03 Range/Units Impression Assessment and Plan SULY -Admit to [facility] -Patient referred for direct admission from outpatient [facility] oncology clinic for elevated creatinine -Currently receiving [facility] chemotherapy for metastatic ureteral carcinoma -Patient reports persistent nausea and poor appetite since last treatment on December 20 -Likely prerenal SULY due to poor p.o. intake -IV fluids, electrolyte replacement as needed -Diet as tolerated -As needed antiemetics MILD QTC PROLONGATION -Has been taking a lot of Zofran at home -Will hold Zofran and use Compazine -Daily EKG -Avoid QTC prolonging agents HISTORY OF METASTATIC URETERAL CARCINOMA -Oncology consult placed DYSLIPIDEMIA -Continue statin DVT PROPHYLAXIS -SQ heparin DISPOSITION -In my clinical judgment this beneficiary meets acute admission criteria, established by [facility], that includes being hospitalized through two midnights. Addendum: I have seen and examined the patient and agree with the assessment and plan as stated above. The patient has just finished some dinner on his tray and states that he is not nauseous at this point. He had multiple questions about his lab work in the plan which were all answered to his satisfaction. He appears in no acute distress, heart sounds are normal with no murmurs gallops or rubs, lungs are clear to auscultation, abdomen is benign. His port is accessed in the left anterior chest wall. Lab work came back while I was in the room and I briefly discussed the results with him. Will replace electrolytes including magnesium, phosphorus, potassium, and recheck in the morning. It is a good sign the patient is eating at this point. He is not neutropenic. He denies any fevers or chills. Will await urine studies to better assess [place] I and continue IV fluids overnight. [place], DO Advanced Directives Existing Living Will: Yes Existing Power of Nurse Transition: Yes Resuscitation Status VTE Prophylaxis Will order VTE Prophylaxis: Yes
[2017-12-27 19:00] LABS: INR 1.1 (0.9-1.1)
[2017-12-27 19:09] LABS: HEMATOCRIT 35.4 % (42-52); HEMOGLOBIN 12.4 g/dL (14.0-18.0); MEAN CELL VOLUME 85.5 fL (80-100); PLATELET COUNT 141 K/uL (130-400); RED CELL DISTRIBUTION WIDTH SD 40.6 fL (36.4-46.3); WHITE BLOOD COUNT 1.98 K/uL (4.8-10.8)
[2017-12-27 19:13] LABS: CREATININE 2.62 mg/dl (0.60-1.40); POTASSIUM 3.3 mmol/L (3.5-5.1)
[2017-12-27 19:14] LABS: PHOSPHORUS 2.2 mg/dl (2.5-4.9)
[2017-12-27] MEDS ORDERED: POTASSIUM CHLORIDE 20 MEQ TABCR PO STA (19:19)
[2017-12-27] MEDS: PROCHLORPERAZINE INJ 10 MG in SYRINGE 8 ML IV PRN (19:50)
[2017-12-27] MEDS: MAGNESIUM SULFATE 1GM / D5W 100 ML IV SCH ×2 (19:50→20:56)
[2017-12-27 20:20] LABS: BASO % 0.5 %; BASO ABS # 0.01 K/uL (0-0.2); IG# 0.02 K/uL (0.00-0.02); LYMPH % 17.7 %; LYMPH ABS # 0.35 K/uL (1.2-3.4); MONO % 5.6 %; MONO ABS # 0.11 K/uL (0.11-0.59); NEUT % 75.2 %; NEUT ABS # 1.49 K/uL (1.4-6.5)
[2017-12-27] MEDS: POT PHOSPHATE MONOBASIC W/ SOD TAB PO SCH (20:55)
[2017-12-27] MEDS: HEPARIN SOD 5000 UNIT/0.5 ML CARP SQ SCH (20:55)
[2017-12-27] MEDS ORDERED: ATORVASTATIN 10 MG TAB PO SCH (21:00)
[2017-12-28 00:08] VITALS: BP 131/77; PULSE 77; TEMP 36.7; O2SAT 95
[2017-12-28] MEDS: SODIUM CHLORIDE 0.9% 1000ML 1,000 ML IV SCH ×2 (01:43→10:09)
[2017-12-28 04:00] VITALS: BP 121/73; PULSE 81; TEMP 36.6; O2SAT 97
[2017-12-28] MEDS: HEPARIN SOD 5000 UNIT/0.5 ML CARP SQ SCH ×2 (05:31→14:00)
[2017-12-28] MEDS: PROCHLORPERAZINE INJ 10 MG in SYRINGE 8 ML IV PRN (05:43)
[2017-12-28 06:05] LABS: HEMATOCRIT 31.9 % (42-52); HEMOGLOBIN 11.1 g/dL (14.0-18.0); MEAN CELL VOLUME 85.8 fL (80-100); MEAN CORPUSCULAR HEMOGLOBIN 29.8 pg (25-34); MEAN CORPUSCULAR HGB CONC 34.8 g/dl (32-36); MEAN PLATELET VOLUME 9.4 fL (7.4-10.4); PLATELET COUNT 109 K/uL (130-400); RED CELL DISTRIBUTION WIDTH SD 40.6 fL (36.4-46.3); WHITE BLOOD COUNT 3.08 K/uL (4.8-10.8)
[2017-12-28 06:36] LABS: CALCIUM 7.6 mg/dl (8.5-10.1); CREATININE 2.18 mg/dl (0.60-1.40); POTASSIUM 3.4 mmol/L (3.5-5.1)
[2017-12-28 06:40] LABS: PHOSPHORUS 3.1 mg/dl (2.5-4.9)
[2017-12-28 07:02] VITALS: BP 117/73; PULSE 79; TEMP 36.8; O2SAT 96
[2017-12-28] MEDS: POT PHOSPHATE MONOBASIC W/ SOD TAB PO SCH ×2 (08:32→11:49)
[2017-12-28 11:23] VITALS: BP 117/74; PULSE 78; TEMP 36.5; O2SAT 99
[2017-12-28 12:05] VITALS: Ht 182.9 cm; Wt 90.3 kg
[2017-12-28] MEDS ORDERED: Labs (13:15)
[2017-12-28] MEDS ORDERED: SLWMEC PO (13:15)
--- NOTE | 2017-12-28 13:18 | Discharge Instructions ---
Discharge Instructions Date of Service Dec 28, 2017. Admission Reason for Admission: Elevated Creatnine Discharge Discharge Diagnosis / Problem: SULY, Hypovolemia, Hypomagnesemia Discharge Goals Goal(s): Diagnostic testing, Therapeutic intervention Activity Recommendations Activity Limitations: as noted below Lifting Limitations: gradually increase as tolerated Exercise/Sports Limitations: gradually increase as tolerated . Instructions / Follow-Up Instructions / Follow-Up Please see Dr. Umanzor on December 31 at 9:45 AM for hospital follow up Please have labs drawn December 30 at [facility] facility closest to you Please follow up with Oncology as scheduled Current Hospital Diet Patient's current hospital diet: Regular Diet Discharge Diet Recommended Diet: Regular Diet Pending Studies Studies pending at discharge: no Medical Emergencies . Who to Call and When: Medical Emergencies: If at any time you feel your situation is an emergency, please call 911 immediately. . Non-Emergent Contact Non-Emergency issues call your: Primary Care Provider, Oncologist . . "Provider Documentation" section prepared by Noelle Rausch. .
[2017-12-28] MEDS ORDERED: POTTAB2 PO ×2 (13:19→13:20)
[2017-12-28 14:21] VITALS: BP 117/74; PULSE 78; TEMP 36.5; O2SAT 99
--- NOTE | 2017-12-28 16:50 | Discharge Summary ---
Discharge Summary Date of Service Dec 28, 2017. Discharge Summary Admission Date: Dec 27, 2017 at 17:29 Discharge Date: Dec 28, 2017 Discharge Disposition: Home Pending Studies/Follow-Up: Repeat lytes (BMP, magnesium, phos) to be done on prior to PCP follow up; follow up with Oncology as scheduled; EKG monitoring for slight QTc prolongation seen on admission Medication Reconciliation New Medications: [Labs] () Please have the following labs drawn and sent to Dr. Umanzor: BMP, Magnesium Magnesium Chloride (Slow-Mag Tab) 64 Mg Tabcr 64 MG PO BID for 3 Days, #6 TABS Pot Phosphate Monobasic W/ Sod (Phospha 250 Neutral) 1 Tab Tab 1 TAB PO BID, #6 TAB Continued Medications: Atorvastatin (Lipitor) 10 Mg Tab 10 MG PO HS, TAB Ondansetron Hcl (Zofran) 8 Mg Tab 8 MG PO Q8H PRN for Nausea, TAB Prochlorperazine Maleate (Compazine) 10 Mg Tab 10 MG PO Q6H PRN for Nausea, TAB Admission Information HPI (per Admitting provider): 57-year-old male who was sent as a direct admission by the [facility] for dehydration. Patient has history of ureteral carcinoma with bony metastases. He is currently receiving [facility] chemotherapy. Last treatment was on December 20. Patient reports severe nausea, poor appetite, vomiting/dry heaves since his last treatment. He denies hematemesis or coffee- ground emesis. No abdominal pain or diarrhea. He has not been running any fevers or having chills. He denies chest pain, cough, sputum production. He reports some mild lightheadedness and dizziness but denies any syncopal events. No shortness of breath. He denies any urinary symptoms. Patient was evaluated at the outpatient oncology clinic today and was found to have a creatinine of 2.9. He was referred for direct admission. At the time my exam, patient is resting in bed in no acute distress. Physical Exam (per Admitting): General Appearance: WD/WN, no apparent distress Head: normocephalic, atraumatic Eyes: normal inspection, EOMI, sclerae normal ENT: hearing grossly normal, + pertinent finding (Mucous membranes moist) Neck: supple, no JVD, trachea midline Respiratory/Chest: lungs clear, normal breath sounds, no respiratory distress, + pertinent finding (Port in place to left chest, no surrounding erythema or drainage) Cardiovascular: regular rate, rhythm, no edema, normal peripheral pulses Abdomen/GI: normal bowel sounds, non tender, soft, no organomegaly Extremities/Musculoskelatal: normal inspection, no calf tenderness, normal capillary refill Neurologic/Psych: no motor/sensory deficits, alert, normal mood/affect, oriented x 3 Skin: normal color, warm/dry Hospital Course Total time spent on discharge = 35 This includes examination of the patient, discharge planning, medication reconciliation, and communication with other providers. Discharge Instructions see patient instructions
[2017-12-28] MEDS ORDERED: MAGNESIUM CHLORIDE 64MG DELAYED REL TAB PO SCH (20:00)
== END 2017-12-28 14:45 | disposition home or self-care (01) | DRG 683 ==
LOC: C.4E 16:29 → OBSVTOIN 17:29
PROVIDERS: ADMIT Hospitalist; ATTEND Internal Medicine
DX: N17.9 Acute kidney failure, unspecified (principal); C66.9 Malignant neoplasm of unspecified ureter; C79.51 Secondary malignant neoplasm of bone; E86.0 Dehydration; E78.5 Hyperlipidemia, unspecified; I45.81 Long QT syndrome; E86.1 Hypovolemia; E83.42 Hypomagnesemia

== ENCOUNTER 2018-01-16 12:04 | Inpatient (IN) | payer OTHER ==
[~2018-01-16] VITALS: Ht 182.9 cm; Wt 87.9 kg
[~2018-01-16 12:04] MED LIST changes: +Labs; +ONDA-170 PO; +POTTAB2 PO; +PROC10TA PO; +SLWMEC PO
[2018-01-16] MEDS ORDERED: SODIUM CHLORIDE 0.9% 1000ML 1,000 ML IV STA (12:30)
[2018-01-16] MEDS ORDERED: PROMETHAZINE HCL INJ 12.5 MG in SODIUM CHLORIDE 0.9% 50ML 50 ML IV STA (12:30)
[2018-01-16 12:42] LABS: HEMATOCRIT 31.2 % (42-52); MEAN CELL VOLUME 84.3 fL (80-100); MEAN CORPUSCULAR HEMOGLOBIN 29.7 pg (25-34); MEAN CORPUSCULAR HGB CONC 35.3 g/dl (32-36); MEAN PLATELET VOLUME 9.6 fL (7.4-10.4); PLATELET COUNT 139 K/uL (130-400); RED CELL DISTRIBUTION WIDTH CV 13.6 % (11.5-14.5)
[2018-01-16 12:52] LABS: INR 1.1 (0.9-1.1); PTT PATIENT 24.3 SECONDS (21.0-31.0)
--- NOTE | 2018-01-16 12:57 | EMERGENCY ROOM VISIT NOTE ---
History Report prepared by Mykel: Trevor Mcclendon Under the Supervision of: Dr. Miah Schaeffer M.D. First contact with patient: 12:19 Chief Complaint: DEHYDRATION Stated Complaint: DEHYDRATED FROM CHEMO NAUSEA History of Present Illness The patient is a 57 year old male who presents to the Emergency Room with complaints of constant weakness beginning six days ago. The patient states that he has a history of renal pelvic cancer and is receiving chemotherapy. He notes that he had chemotherapy six days ago, and has been feeling dehydrated since. He reports that he received IV fluids five days and three days ago. The patient states that he had to be admitted for dehydration a month ago after receiving chemotherapy. He also complains of lightheadedness, mild CP and SOB, occasional vomiting and diarrhea, and a decreased appetite and fluid intake. He notes that he took compazine and Zofran at home with no relief of his symptoms. Source of History: patient Onset: six days ago Position: other (generalized) Quality: other (weakness) Timing: constant Associated Symptoms: + chest pain (mild), + SOB (mild), + vomiting ( occasional), + diarrhea (occasional) Note: The patient also complains of lightheadedness and a decreased appetite and fluid intake. Review of Systems See HPI for pertinent positives & negatives. A total of 10 systems reviewed and were otherwise negative. Past Medical & Surgical Medical Problems: (1) Bone metastases (2) Cancer of renal pelvis (3) Dyslipidemia (4) History of chemotherapy (5) Ureteral carcinoma Surgical Problems: (1) H/O nephroureterectomy (2) s/p ureterectomy Family History Patient reports no known family medical history. Social History Smoking Status: Never Smoker Marital Status: Housing Status: lives with family Occupation Status: employed Current/Historical Medications Scheduled Atorvastatin (Lipitor), 10 MG PO HS Scheduled PRN Ondansetron Hcl (Zofran), 8 MG PO Q8H PRN for Nausea Prochlorperazine Maleate (Compazine), 10 MG PO Q6H PRN for Nausea Miscellaneous Medications [Labs] Allergies Coded Allergies: No Known Allergies (Unverified , 01/16/18) Physical Exam Vital Signs Date Time Temp Pulse Resp B/P (MAP) Pulse Ox O2 Delivery O2 Flow Rate FiO2 01/16/18 13:54 83 16 130/81 97 Room Air 01/16/18 12:58 91 18 108/89 Room Air 01/16/18 12:46 85 01/16/18 12:31 108/75 01/16/18 12:15 36.7 99 20 63/45 97 Room Air Physical Exam GENERAL: Patient is in no acute distress. HEENT: No acute trauma, normocephalic atraumatic, mucous membranes dry, no nasal congestion, no scleral icterus. NECK: No stridor, no adenopathy, no meningismus, trachea is midline. LUNGS: Clear to auscultation bilaterally, no wheeze, no rhonchi, breath sounds equal. HEART: Without murmurs gallops or rubs, regular rate and rhythm. ABDOMEN: Soft, nontender, bowel sounds positive, no hernias, no peritonitis. EXTREMITIES: No cyanosis or edema, full range of motion of all the joints without pain or difficulty, no signs for acute trauma. NEUROLOGIC: Oriented x 3, no acute motor or sensory deficits, no focal weakness. SKIN: No rash, no jaundice, no diaphoresis, pale. Medical Decision & Procedures ER Provider Diagnostic Interpretation: Radiology results as stated below per my review and radiologist interpretation: CHEST ONE VIEW PORTABLE FINDINGS: The lungs are clear. Cardiac silhouette is normal in size. No pleural effusions. No pneumothorax. The left Port-A-Cath terminates in the SVC. IMPRESSION: No acute process. Electronically signed by: Benny Fuentes M.D. 01/16/2018 1:42 PM Laboratory Results 01/16/18 12:30 Red Blood Count 3.70, Mean Corpuscular Volume 84.3, Mean Corpuscular Hemoglobin 29.7, Mean Corpuscular Hemoglobin Concent 35.3, Mean Platelet Volume 9.6, Neutrophils (%) (Auto) 53.4, Lymphocytes (%) (Auto) 43.0, Monocytes (%) (Auto) 2.7, Eosinophils (%) (Auto) 0.3, Basophils (%) (Auto) 0.3, Neutrophils # (Auto) 1.60, Lymphocytes # (Auto) 1.29, Monocytes # (Auto) 0.08, Eosinophils # (Auto) 0.01, Basophils # (Auto) 0.01 01/16/18 12:30 Test 01/16/18 12:30 01/16/18 14:00 White Blood Count 3.00 K/uL (4.8-10.8) Red Blood Count 3.70 M/uL (4.7-6.1) Hemoglobin 11.0 g/dL (14.0-18.0) Hematocrit 31.2 % (42-52) Mean Corpuscular Volume 84.3 fL (80-100) Mean Corpuscular Hemoglobin 29.7 pg (25-34) Mean Corpuscular Hemoglobin Concent 35.3 g/dl (32-36) Platelet Count 139 K/uL (130-400) Mean Platelet Volume 9.6 fL (7.4-10.4) Neutrophils (%) (Auto) 53.4 % Lymphocytes (%) (Auto) 43.0 % Monocytes (%) (Auto) 2.7 % Eosinophils (%) (Auto) 0.3 % Basophils (%) (Auto) 0.3 % Neutrophils # (Auto) 1.60 K/uL (1.4-6.5) Lymphocytes # (Auto) 1.29 K/uL (1.2-3.4) Monocytes # (Auto) 0.08 K/uL (0.11-0.59) Eosinophils # (Auto) 0.01 K/uL (0-0.5) Basophils # (Auto) 0.01 K/uL (0-0.2) RDW Standard Deviation 41.0 fL (36.4-46.3) RDW Coefficient of Variation 13.6 % (11.5-14.5) Immature Granulocyte % (Auto) 0.3 % Immature Granulocyte # (Auto) 0.01 K/uL (0.00-0.02) Toxic Granulation 2+ Dohle Bodies 1+ Prothrombin Time 11.4 SECONDS (9.0-12.0) Prothromb Time International Ratio 1.1 (0.9-1.1) Activated Partial Thromboplast Time 24.3 SECONDS (21.0-31.0) Partial Thromboplastin Ratio 0.9 Anion Gap 12.0 mmol/L (3-11) Est Creatinine Clear Calc Drug Dose 50.3 ml/min Estimated GFR () 48.0 Estimated GFR (Non- 41.4 BUN/Creatinine Ratio 14.0 (10-20) Calcium Level 6.9 mg/dl (8.5-10.1) Magnesium Level 0.7 mg/dl (1.8-2.4) Total Bilirubin 0.8 mg/dl (0.2-1) Aspartate Amino Transf (AST/SGOT) 43 U/L (15-37) Alanine Aminotransferase (ALT/SGPT) 104 U/L (12-78) Alkaline Phosphatase 94 U/L (45-117) Troponin I < 0.015 ng/ml (0-0.045) Total Protein 6.7 gm/dl (6.4-8.2) Albumin 3.2 gm/dl (3.4-5.0) Globulin 3.5 gm/dl (2.5-4.0) Albumin/Globulin Ratio 0.9 (0.9-2) Thyroid Stimulating Hormone (TSH) 1.990 uIu/ml (0.300-4.500) Laboratory results reviewed by me. Medications Administered Medications (Trade) Dose Ordered Sig/Patrick Route Start Time Stop Time Status Last Admin Dose Admin Sodium Chloride 1,000 ml @ 999 mls/hr Q1H1M STAT IV 01/16/18 12:30 01/16/18 13:30 DC 01/16/18 12:39 999 MLS/HR Promethazine HCl 12.5 mg/Sodium Chloride 50.5 ml @ 204 mls/hr NOW STAT IV 01/16/18 12:30 01/16/18 12:44 DC 01/16/18 12:42 204 MLS/HR Magnesium Sulfate (Magnesium Sulfate 1gm / D5W) 2 gm NOW STAT IV 01/16/18 13:10 01/16/18 13:11 DC 01/16/18 13:28 2 GM Potassium Chloride (KCL 10 mEq / WTR) 10 meq NOW STAT IV 01/16/18 13:10 01/16/18 13:11 DC 01/16/18 13:27 10 MEQ Promethazine HCl 12.5 mg/Sodium Chloride 50.5 ml @ 202 mls/hr 1415 ONCE IV 01/16/18 14:15 01/16/18 14:29 01/16/18 14:22 202 MLS/HR ECG Per My Interpretation Indication: weakness Rate (beats per minute): 97 Rhythm: normal sinus Findings: other (Diffuse nonspecific ST change, QTC proloned at 520ms, no PVCs , no ST elevation) ED Course 1224: The patient was evaluated in room A11. A complete history and physical exam was performed. 1230: Promethazine HCl 12.5mg/Sodium Chloride 50.5 ml @ 204mls/hr IV, Sodium Chloride 1000 ml @ 999 mls/hr IV 1310: Potassium Chloride 10meq IV, Magnesium Sulfate 2mg IV 1313: I reevaluated and updated the patient. 1323: Upon reexamination the patient is stable. I discussed results and treatment plan with the patient. He verbalizes agreement and understanding. I spoke with Dr. Santoyo of the [facility]. We discussed the patient's results and findings. The patient will be evaluated by Dr. Santoyo for further management. Medical Decision Differential diagnoses include: dehydration, anemia, electrolyte imbalance, renal failure, UTI, viral illness, and medication reaction. There is no leukocytosis or concerning anemia. Renal panel testing shows acute renal failure, hypomagnesemia and hypokalemia. Were a few liver enzyme elevations. No coagulopathy. Chest film does not show pneumonia or pneumothorax. On exam, there was no cellulitis. The patient did not seem toxic. He was not febrile. EKG shows a normal sinus rhythm, no acute ischemia. A somewhat prolonged QT was noted. Cardiac enzyme testing 1 is not consistent with acute cardiac injury. Blood cultures are pending. The patient received IV saline. He was given IV Phenergan for nausea. He received IV magnesium and IV potassium. With the above treatment, the patient does feel improved. His blood pressure has improved. He has failed outpatient treatment. He is quite dehydrated and there are some electrolyte imbalances that require correction. A hospital stay is warranted. I spoke to the patient and case management. The on-call hospitalist was consulted. Medication Reconcilliation Current Medication List: was personally reviewed by ia Blood Pressure Screening Patient's blood pressure: Low blood pressure Low blood pressure will be monitored by hospitalist. Consults Time Called: 1320 Consulting Physician: Dr. Santoyo - [facility] Returned Call: [phone] Discussed the patient's case. The patient will be evaluated for further management. Impression Primary Impression: Hypotension Additional Impressions: Dehydration Acute renal failure Hypokalemia Hypomagnesemia Critical Care I have personally spent greater than 35 minutes of critical care time in the direct management of this patient. This includes bedside care, interpretation of diagnostic studies, and testing, discussion with consultants, patient, and family members, and other required patient management activities. This 35 minutes is in excess of all separately billable procedures. Scribe Attestation The scribe's documentation has been prepared under my direction and personally reviewed by me in its entirety. I confirm that the note above accurately reflects all work, treatment, procedures, and medical decision making performed by me. Departure Information Dispostion Being Evaluated By Hospitalist Referrals Paulie Umanzor M.D. (PCP) Patient Instructions [facility] Problem Qualifiers
[2018-01-16 13:00] LABS: BASO % 0.3 %; BASO ABS # 0.01 K/uL (0-0.2); EOS % 0.3 %; EOS ABS # 0.01 K/uL (0-0.5); IG# 0.01 K/uL (0.00-0.02); LYMPH ABS # 1.29 K/uL (1.2-3.4); MONO % 2.7 %; MONO ABS # 0.08 K/uL (0.11-0.59); NEUT % 53.4 %
[2018-01-16 13:07] LABS: ALBUMIN 3.2 gm/dl (3.4-5.0); ALT/SGPT 104 U/L (12-78); AST/SGOT 43 U/L (15-37); BLOOD UREA NITROGEN 25 mg/dl (7-18); CALCIUM 6.9 mg/dl (8.5-10.1); CARBON DIOXIDE 27 mmol/L (21-32); CREATININE 1.78 mg/dl (0.60-1.40); GLUCOSE 120 mg/dl (70-99); POTASSIUM 2.5 mmol/L (3.5-5.1); SODIUM 136 mmol/L (136-145)
[2018-01-16] MEDS ORDERED: MAGNESIUM SULFATE 1GM / D5W 1 GM BAG IV STA (13:10)
[2018-01-16] MEDS ORDERED: POTASSIUM CHLORIDE 10 MEQ / 100ML WTR IV STA (13:10)
[2018-01-16 13:20] LABS: ALKALINE PHOSPHATASE 94 U/L (45-117); TOTAL PROTEIN 6.7 gm/dl (6.4-8.2)
--- NOTE | 2018-01-16 13:25 | History and Physical ---
History & Physical Date & Time of Service: January 16, 2018 at 13:25 Chief Complaint: Dehydrated From Chemo Nausea Primary Care Physician: Paulie Umanzor M.D. History of Present Illness Source: patient, family Patient is a 57-year-old male with past medical history of metastatic ureteral carcinoma, dyslipidemia, BPH and other medical problems presents with history of intractable nausea and vomiting, generalized weakness since 6 days duration. Patient follows with Dr. Dietz and had his last chemotherapy on Wednesday. Symptoms started after receiving chemotherapy. Patient has received IV fluids on Wednesday and Wednesday through cancer care center as outpatient. He reports have decreased appetite and was unable to eat secondary to nausea and vomiting. Also reports constipation for which he has taken stool softeners likely leading to diarrhea 2 days ago. He was found to have severe hypertension with BP in 60s associated with dizziness while in ED which improved with IV fluids. Denies any history of chest pain, SOB, pedal edema, diaphoresis, cough, hemoptysis, fever, chills, headache, abdominal pain, blood in stools, dysuria, hematuria, sick contact. Past Medical/Surgical History Medical Problems: (1) Bone metastases (2) Dyslipidemia (3) Ureteral carcinoma Surgical Problems: (1) H/O nephroureterectomy (2) s/p ureterectomy Family History Patient reports no known family medical history. Sister: Breast Cancer Social History Smoking Status: Never Smoker Alcohol Use: socially Drug Use: none Immunizations History of Influenza Vaccine: Yes Influenza Vaccine Date: Aug 15, 2013 History of Tetanus Vaccine?: Yes Tetanus Immunization Date: Sep 20, 2013 Allergies Coded Allergies: No Known Allergies (Unverified , 01/16/18) Home Medications Scheduled Atorvastatin (Lipitor), 10 MG PO HS Scheduled PRN Ondansetron Hcl (Zofran), 8 MG PO Q8H PRN for Nausea Prochlorperazine Maleate (Compazine), 10 MG PO Q6H PRN for Nausea Miscellaneous Medications [Labs] Review of Systems See HPI for pertinent positives & negatives. A total of 10 systems reviewed and were otherwise negative. Physical Exam Vital Signs Date Time Temp Pulse Resp B/P (MAP) Pulse Ox O2 Delivery O2 Flow Rate FiO2 01/16/18 12:58 91 18 108/89 Room Air 01/16/18 12:46 85 01/16/18 12:31 108/75 01/16/18 12:15 36.7 99 20 63/45 97 Room Air General Appearance: WD/WN, no apparent distress, + mild distress (Secondary to nausea, vomiting) Head: normocephalic, atraumatic Eyes: normal inspection, PERRL, EOMI ENT: normal ENT inspection, hearing grossly normal Neck: supple, trachea midline Respiratory/Chest: chest non-tender, lungs clear, normal breath sounds, no respiratory distress, no accessory muscle use Cardiovascular: regular rate, rhythm, no edema, no murmur, + pertinent finding (Chemo port on left side of chest) Abdomen/GI: normal bowel sounds, non tender, soft Back: normal inspection Extremities/Musculoskelatal: normal inspection, no pedal edema 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, no motor/sensory deficits, alert, normal mood/affect, oriented x 3 Skin: normal color, warm/dry Lymphatic: no adenopathy Diagnostics Laboratory Results Results Past 24 Hours Test 01/16/18 12:30 Range/Units White Blood Count 3.00 4.8-10.8 K/uL Red Blood Count 3.70 4.7-6.1 M/uL Hemoglobin 11.0 14.0-18.0 g/dL Hematocrit 31.2 42-52 % Mean Corpuscular Volume 84.3 80-100 fL Mean Corpuscular Hemoglobin 29.7 25-34 pg Mean Corpuscular Hemoglobin Concent 35.3 32-36 g/dl Platelet Count 139 130-400 K/uL Mean Platelet Volume 9.6 7.4-10.4 fL Neutrophils (%) (Auto) 53.4 % Lymphocytes (%) (Auto) 43.0 % Monocytes (%) (Auto) 2.7 % Eosinophils (%) (Auto) 0.3 % Basophils (%) (Auto) 0.3 % Neutrophils # (Auto) 1.60 1.4-6.5 K/uL Lymphocytes # (Auto) 1.29 1.2-3.4 K/uL Monocytes # (Auto) 0.08 0.11-0.59 K/uL Eosinophils # (Auto) 0.01 0-0.5 K/uL Basophils # (Auto) 0.01 0-0.2 K/uL RDW Standard Deviation 41.0 36.4-46.3 fL RDW Coefficient of Variation 13.6 11.5-14.5 % Immature Granulocyte % (Auto) 0.3 % Immature Granulocyte # (Auto) 0.01 0.00-0.02 K/uL Toxic Granulation 2+ Dohle Bodies 1+ Prothrombin Time 11.4 9.0-12.0 SECONDS Prothromb Time International Ratio 1.1 0.9-1.1 Activated Partial Thromboplast Time 24.3 21.0-31.0 SECONDS Partial Thromboplastin Ratio 0.9 Sodium Level 136 136-145 mmol/L Potassium Level 2.5 3.5-5.1 mmol/L Chloride Level 97 98-107 mmol/L Carbon Dioxide Level 27 21-32 mmol/L Anion Gap 12.0 3-11 mmol/L Blood Urea Nitrogen 25 7-18 mg/dl Creatinine 1.78 0.60-1.40 mg/dl Est Creatinine Clear Calc Drug Dose 50.3 ml/min Estimated GFR () 48.0 Estimated GFR (Non- 41.4 BUN/Creatinine Ratio 14.0 10-20 Random Glucose 120 70-99 mg/dl Calcium Level 6.9 8.5-10.1 mg/dl Magnesium Level 0.7 1.8-2.4 mg/dl Total Bilirubin 0.8 0.2-1 mg/dl Aspartate Amino Transf (AST/SGOT) 43 15-37 U/L Alanine Aminotransferase (ALT/SGPT) 104 12-78 U/L Alkaline Phosphatase 94 45-117 U/L Troponin I < 0.015 0-0.045 ng/ml Total Protein 6.7 6.4-8.2 gm/dl Albumin 3.2 3.4-5.0 gm/dl Globulin 3.5 2.5-4.0 gm/dl Albumin/Globulin Ratio 0.9 0.9-2 Thyroid Stimulating Hormone (TSH) 1.990 0.300-4.500 uIu/ml Microbiology Results 01/16/18 Blood Culture, Received Pending 01/16/18 Blood Culture, Received Pending Diagnostic Radiology CXR: No acute process. EKG EKG: NSR, Prolonged QTC, Non specific ST changes Impression Assessment and Plan Intractable Nausea, Vomiting Neutropenia SIRS, Dehydration Likely secondary to Chemotherapy Admit in Tele Elevated lactate levels likely secondary to above No obvious source of Infection Empirically start with IV antibiotics given Immunocompromised Status IV fluids Blood cultures obtained Check stool studies if he develops diarrhea Monitor lactate levels clear liquid diet, advance as tolerated SULY: likely prerenal secondary to GI loses H/O Nephroureterectomy IV fluids monitor renal function avoid nephrotoxic agents as able Hypokalemia/Hypomagnesemia: replace and monitor check phosphorous levels as well Prolonged QTC: Avoid QTC prolonging meds repeat EKG in AM Metastatic ureteral carcinoma S/P R Nephroureterectomy in 2016 Completed Chemotherapy: Last chemotherapy on 01/10/18 Consult Oncology Dyslipidemia Continue Statins DVT Px: Heparin SQ Code Status: Full Code Disposition: Expect to discharge home when stable Resuscitation Status VTE Prophylaxis Will order VTE Prophylaxis: Yes
--- NOTE | 2018-01-16 13:43 | DIAGNOSTIC IMAGING REPORT ---
CHEST ONE VIEW PORTABLE HISTORY: EVALUATE ALTERED MENTAL STATUS/WEAKNESS COMPARISON: Chest 12/02/2017. FINDINGS: The lungs are clear. Cardiac silhouette is normal in size. No pleural effusions. No pneumothorax. The left Port-A-Cath terminates in the SVC. IMPRESSION: No acute process. Electronically signed by: Benny Fuentes M.D. 01/16/2018 1:42 PM Dictated Date/Time: 01/16/2018 1:41 PM
[2018-01-16] MEDS ORDERED: NURSING VERBAL MED ORDER ONE (14:00)
[2018-01-16] MEDS ORDERED: PROMETHAZINE HCL INJ 25 MG in SODIUM CHLORIDE 0.9% 50ML 50 ML IV PRN (14:15)
[2018-01-16] MEDS ORDERED: PROMETHAZINE HCL INJ 12.5 MG in SODIUM CHLORIDE 0.9% 50ML 50 ML IV ONE (14:15)
[2018-01-16] MEDS ORDERED: POLYETHYLENE (MIRALAX) 17 GM PACK PO PRN (14:15)
[2018-01-16] MEDS ORDERED: DOCUSATE SODIUM 100 MG CAP PO PRN (14:30)
[2018-01-16] MEDS ORDERED: CONSULT PHARMACY STA (15:27)
[2018-01-16] MEDS: POTASSIUM CHLR 10 MEQ / WTR 100 ML IV SCH ×3 (15:28→17:20)
[2018-01-16] MEDS: MAG SULFATE 50% INJ 1 GM in DEXTROSE 5% 100ML IV SCH ×2 (15:28→16:20)
[2018-01-16 15:39] VITALS: BP 106/74; PULSE 87; TEMP 36.5; O2SAT 99; Ht 182.9 cm; Wt 87.9 kg
[2018-01-16] MEDS ORDERED: VANCOMYCIN CONSULT ACTIVE PRN (16:00)
[2018-01-16] MEDS ORDERED: PIPERACILL/TAZOBAC CONSULT ACTIVE PRN (16:00)
[2018-01-16] MEDS ORDERED: PIPERACILL/TAZOBAC IV 3.375 GM in D5W 100 ML IV ONE (16:00)
--- NOTE | 2018-01-16 16:02 | Pharmacy Progress Note ---
Pharmacy Abx Dose Short Note Date of Service January 16, 2018. Assessment & Plan Assessment * 57 year old male admitted for NVD and dehydration x 6 days following chemotherapy for metastatic ureteral CA * He is currently afebrile * SCr 1.78, baseline uncertain. He was admitted in December as well w/ dehydration. Baseline SCr may be ~1.4? * BlCX's ordered, CXR negative, * WBC low but not neutropenic today - uncertain what his chemo regimen may be * He was initially hypotensive on presentation however BP much improved Plan Vancomycin * Loading dose: 1750mg IV x 1 (~19.9mg/kg) * Maint dose: 1250mg (~14.2mg/kg) IV Q 18 hours * Goal trough: 15-20mcg/mL initially * P'kinetic estimates: Vd 0.7L/kg; half-life ~16 hours * Will check trough level if therapy extends beyond 48 hours Zosyn * eCrCl > 20cc/min; BMI < 35; 3.375gm IV load over 30min then 3.375gm ext- infusion Q 8 hrs Pharmacy will continue to follow and will adjust dose/frequency as necessary. Thank you.
[2018-01-16] MEDS: NSS + 20MEQ KCL 1000ML 1,000 ML IV SCH (16:19)
[2018-01-16] MEDS ORDERED: VANCOMYCIN IV 1,750 MG in SODIUM CHLORIDE 0.9% 500ML 500 ML IV ONE (16:30)
--- NOTE | 2018-01-16 18:05 | Oncology Consultation ---
Oncology/Heme Consultation Date of Consultation: January 16, 2018. Attending Physician: Raymundo Santoyo MD Reason for Consultation: Static urothelial carcinoma Nausea and vomiting uncontrolled status post chemotherapy History of Present Illness Mr. Weber is a 57-year-old gentleman with a history of metastatic urothelial carcinoma. He presented in early [address] scan revealed significant right renal atrophy. There was a workup that was initially negative for malignancy but given the uncertainty and the etiology of his ureteral obstruction he went on to have a right nephro ureterectomy. This occurred in March 2016 with the results revealing a high-grade urothelial carcinoma. The tumor invaded the renal parenchyma and infiltrated periureteric fat. He underwent adjuvant cis-[place] and gemcitabine for 3 cycles from April until June 2016. November 2016 he underwent a completion of the right ureterectomy revealing residual high-grade urothelial carcinoma. There were nests of malignant cells were mostly in the lamina propria. All margins were negative. CT scan in August of last year revealed a sclerotic 12 mm lesion located at L1. A Second lesion was seen in the right posterior acetabulum which is new from prior scans. A A biopsy of the L1 bony lesion revealed metastatic carcinoma. PET CT scan in October this year demonstrated increased FDG uptake at the L1 vertebral body as well as the right acetabular area with no other evidence of disease. He was begun on dose dense MVAC. He was last treated about a week ago but has had persistent nausea and vomiting and been unable to eat. He has required IV hydration in our clinic after the most recent therapies. He denies any fever or chills. He denies diarrhea or abdominal pain. He denies any new bone pain. His called earlier today and reviewed with me that he just was not feeling well and was not eating. She was worried justifiably about his remaining kidney. He was seen in the emergency room. Creatinine to 1.7 and the patient also had significant hypomagnesemia and hypokalemia. The creatinine that is actually quite stable. He has been admitted for hydration at least overnight. Past Medical/Surgical History Medical Problems: (1) Acute renal failure Status: Acute (2) Dehydration Status: Acute (3) Hypokalemia Status: Acute (4) Hypomagnesemia Status: Acute (5) Hypotension Status: Acute Family History Patient reports no known family medical history. Social History Smoking Status: Never Smoker Alcohol Use: socially Drug Use: none Marital Status: Housing Status: lives with family Occupation Status: employed Allergies Coded Allergies: No Known Allergies (Unverified , 01/16/18) Home Medications Scheduled Atorvastatin (Lipitor), 10 MG PO HS Scheduled PRN Ondansetron Hcl (Zofran), 8 MG PO Q8H PRN for Nausea Prochlorperazine Maleate (Compazine), 10 MG PO Q6H PRN for Nausea Miscellaneous Medications [Labs] Current Inpatient Medications Current Inpatient Medications Medications (Trade) Dose Ordered Sig/Patrick Route Start Time Stop Time Status Last Admin Dose Admin Heparin Sodium (Porcine) (Heparin Sq 5000 Unit/0.5ml) 5,000 unit Q8 SQ 01/16/18 22:00 02/15/18 21:59 Potassium Chloride/Sodium Chloride 1,000 ml @ 125 mls/hr Q8H IV 01/16/18 16:00 02/15/18 15:59 01/16/18 16:19 125 MLS/HR Polyethylene (Miralax Powder Packet) 17 gm DAILY PRN PO 01/16/18 14:15 02/15/18 14:14 Promethazine HCl 25 mg/Sodium Chloride 51 ml @ 204 mls/hr Q6H PRN IV 01/16/18 14:15 02/15/18 14:14 01/16/18 17:37 204 MLS/HR Atorvastatin Calcium (Lipitor Tab) 10 mg HS PO 01/16/18 21:00 02/15/18 20:59 Docusate Sodium (coLACE CAP) 100 mg BID PRN PO 01/16/18 14:30 02/15/18 14:29 Piperacillin Sod/ Tazobactam Sod 3.375 gm/Dextrose 115 ml @ 28.75 mls/ hr Q8H IV 01/16/18 22:00 01/18/18 21:59 Vancomycin HCl 1750 mg/Sodium Chloride 535 ml @ 200 mls/hr NOW ONCE IV 01/16/18 16:30 01/16/18 19:10 01/16/18 16:23 200 MLS/HR Miscellaneous Information (Consult) 1 ea UD PRN N/A 01/16/18 16:00 02/15/18 15:59 Miscellaneous Information (Consult) 1 ea UD PRN N/A 01/16/18 16:00 02/15/18 15:59 Vancomycin HCl 1250 mg/Sodium Chloride 275 ml @ 125 mls/hr Q18H IV 01/17/18 10:00 01/18/18 15:59 Review of Systems Constitutional: Negative for night sweats, or fever Eyes: Negative for event change of vision ENT: Negative for epistaxis, nasal discharge, sore throat, or deafness Cardiovascular: Negative for chest pain, palpitations, dizziness, diaphoresis Respiratory: Negative for new shortness of breath,hemoptysis, or purulent cough Gastrointestinal: Negative for diarrhea, hematemesis, melena, positive for nausea, vomiting, no dyspepsia Integumentary (skin): Negative for rash or jaundice discoloration Genitourinary: Negative for urinary frequency, hematuria, or dysuria Neurological: Negative for weakness, seizure activity, headache, or dizziness Lymphatic/Hematologic: Negative for petechiae, bleeding or new adenopathy Musculoskeletal: Negative for new joint or back pain Allergic/Immunologic: Negative for unusual rash or pruritis. Physical Exam Date Time Temp Pulse Resp B/P (MAP) Pulse Ox O2 Delivery O2 Flow Rate FiO2 01/16/18 16:00 Room Air 01/16/18 15:39 36.5 87 20 106/74 99 Room Air 01/16/18 13:54 83 16 130/81 97 Room Air 01/16/18 12:58 91 18 108/89 Room Air 01/16/18 12:46 85 01/16/18 12:31 108/75 01/16/18 12:15 36.7 99 20 63/45 97 Room Air Constitutional: vitals are stable. Alopecic pleasant gentleman. His is present also at this time. Eyes: Eyes are UGO EOMI without conjuctival erythema or icterus. ENT: External examination was negative for masses. Neck: Negative for masses or palpable thyromegaly Respiratory: Lung sounds were generally clear bilaterally Cardiovascular: Heart was RRR without significant murmur, gallops aoe rubs Gastrointestinal: No palpable hepatic or splenomegaly. The abdomen was soft with normal bowel sounds. Lymphatic system: there was no palpable peripheral lymphadenopathy Musculoskeletal System: The musculoskeletal system seemed concordant with age. Skin: The skin was negative for jaundice. Neurologic exam: The exam was negative for any focal findings. Deep tendon reflexes were equal and symmetrical. Psychiatric exam: Was essentially negative with normal mood and effect. Exttremities: negative for edema Laboratory Results Last 24 Hours Test 01/16/18 00:00 01/16/18 12:30 01/16/18 14:00 Urine Color YELLOW Urine Appearance CLEAR Urine pH 6.0 Urine Specific [place] 1.015 Urine Protein NEG Urine Glucose (UA) NEG Urine Ketones NEG Urine Occult Blood NEG Urine Nitrite NEG Urine Bilirubin NEG Urine Urobilinogen NEG Urine Leukocyte Esterase NEG White Blood Count 3.00 K/uL Red Blood Count 3.70 M/uL Hemoglobin 11.0 g/dL Hematocrit 31.2 % Mean Corpuscular Volume 84.3 fL Mean Corpuscular Hemoglobin 29.7 pg Mean Corpuscular Hemoglobin Concent 35.3 g/dl Platelet Count 139 K/uL Mean Platelet Volume 9.6 fL Neutrophils (%) (Auto) 53.4 % Lymphocytes (%) (Auto) 43.0 % Monocytes (%) (Auto) 2.7 % Eosinophils (%) (Auto) 0.3 % Basophils (%) (Auto) 0.3 % Neutrophils # (Auto) 1.60 K/uL Lymphocytes # (Auto) 1.29 K/uL Monocytes # (Auto) 0.08 K/uL Eosinophils # (Auto) 0.01 K/uL Basophils # (Auto) 0.01 K/uL RDW Standard Deviation 41.0 fL RDW Coefficient of Variation 13.6 % Immature Granulocyte % (Auto) 0.3 % Immature Granulocyte # (Auto) 0.01 K/uL Toxic Granulation 2+ Dohle Bodies 1+ Prothrombin Time 11.4 SECONDS Prothromb Time International Ratio 1.1 Activated Partial Thromboplast Time 24.3 SECONDS Partial Thromboplastin Ratio 0.9 Sodium Level 136 mmol/L Potassium Level 2.5 mmol/L Chloride Level 97 mmol/L Carbon Dioxide Level 27 mmol/L Anion Gap 12.0 mmol/L Blood Urea Nitrogen 25 mg/dl Creatinine 1.78 mg/dl Est Creatinine Clear Calc Drug Dose 50.3 ml/min Estimated GFR () 48.0 Estimated GFR (Non- 41.4 BUN/Creatinine Ratio 14.0 Random Glucose 120 mg/dl Calcium Level 6.9 mg/dl Magnesium Level 0.7 mg/dl Total Bilirubin 0.8 mg/dl Aspartate Amino Transf (AST/SGOT) 43 U/L Alanine Aminotransferase (ALT/SGPT) 104 U/L Alkaline Phosphatase 94 U/L Troponin I < 0.015 ng/ml Total Protein 6.7 gm/dl Albumin 3.2 gm/dl Globulin 3.5 gm/dl Albumin/Globulin Ratio 0.9 Procalcitonin 0.29 ng/ml Thyroid Stimulating Hormone (TSH) 1.990 uIu/ml Lactic Acid Level 2.2 mmol/L Assessment & Plan metastatic urothelial carcinoma. The patient has been receiving multiagent chemotherapy. He has been receiving the regimen MVAC. His last treatment was about a week ago and he has had persistent nausea vomiting and dehydration. He also was found to have significant hypomagnesemia as well as hypokalemia. The patient is status post right renal resection. Creatinine is 1.78. He will be admitted for IV hydration overnight. If in fact he is able to eat breakfast uneventfully then perhaps we can continue the hydration as an outpatient through our clinic over the next week.
[2018-01-16 19:02] LABS: CALCIUM 6.4 mg/dl (8.5-10.1); CREATININE 1.52 mg/dl (0.60-1.40); POTASSIUM 2.8 mmol/L (3.5-5.1)
[2018-01-16 19:30] VITALS: BP 104/72; PULSE 100; TEMP 37.5; O2SAT 97
[2018-01-16] MEDS: HEPARIN SOD 5000 UNIT/0.5 ML CARP SQ SCH (19:36)
[2018-01-16 20:00] VITALS: O2SAT 97
[2018-01-16] MEDS ORDERED: ATORVASTATIN 10 MG TAB PO SCH (21:00)
[2018-01-16] MEDS: PIPERACILL/TAZOBAC IV 3.375 GM in D5W 100ML IV SCH (21:27)
[2018-01-16] MEDS ORDERED: PROCHLORPERAZINE INJ 5 MG in SYRINGE 4 ML IV ONE (22:15)
[2018-01-16 23:05] VITALS: BP 117/79; PULSE 84; TEMP 37.3; O2SAT 97
[2018-01-17] VITALS (8 sets, daily range): BP systolic 127–134; BP diastolic 83–86; PULSE 81–86; TEMP 36.7–37.2; O2SAT 97–99
[2018-01-17] MEDS: NSS + 20MEQ KCL 1000ML 1,000 ML IV SCH ×2 (00:06→07:58)
[2018-01-17 05:01] LABS: HEMATOCRIT 26.1 % (42-52); MEAN CORPUSCULAR HEMOGLOBIN 29.3 pg (25-34); MEAN CORPUSCULAR HGB CONC 34.5 g/dl (32-36); MEAN PLATELET VOLUME 9.7 fL (7.4-10.4); PLATELET COUNT 104 K/uL (130-400); RED CELL DISTRIBUTION WIDTH CV 13.8 % (11.5-14.5); RED CELL DISTRIBUTION WIDTH SD 41.7 fL (36.4-46.3); WHITE BLOOD COUNT 1.91 K/uL (4.8-10.8)
[2018-01-17 05:10] LABS: ALBUMIN 2.8 gm/dl (3.4-5.0); CALCIUM 6.2 mg/dl (8.5-10.1); CREATININE 1.43 mg/dl (0.60-1.40); POTASSIUM 2.9 mmol/L (3.5-5.1)
[2018-01-17 05:13] LABS: TOTAL PROTEIN 5.7 gm/dl (6.4-8.2)
[2018-01-17] MEDS: HEPARIN SOD 5000 UNIT/0.5 ML CARP SQ SCH ×2 (05:14→13:29)
[2018-01-17 05:20] LABS: BASO % 0.5 %; BASO ABS # 0.01 K/uL (0-0.2); EOS % 0.5 %; EOS ABS # 0.01 K/uL (0-0.5); IG# 0.11 K/uL (0.00-0.02); LYMPH % 53.9 %; LYMPH ABS # 1.03 K/uL (1.2-3.4); MONO % 6.8 %; MONO ABS # 0.13 K/uL (0.11-0.59); NEUT % 32.5 %; NEUT ABS # 0.62 K/uL (1.4-6.5)
[2018-01-17] MEDS: PIPERACILL/TAZOBAC IV 3.375 GM in D5W 100ML IV SCH ×2 (05:31→13:28)
[2018-01-17] MEDS: MAGNESIUM SULFATE 1GM / D5W 100 ML IV SCH ×2 (05:54→06:59)
[2018-01-17] MEDS: POTASSIUM CHLR 10 MEQ / WTR 100 ML IV SCH ×4 (05:55→09:13)
[2018-01-17] MEDS ORDERED: PROCHLORPERAZINE INJ 5 MG in SYRINGE 4 ML IV PRN (08:45)
[2018-01-17] MEDS ORDERED: MAGNESIUM SULFATE 1GM / D5W 100 ML IV SCH (09:00)
[2018-01-17] MEDS ORDERED: VANCOMYCIN IV 1,250 MG in SODIUM CHLORIDE 0.9% 250ML 250 ML IV SCH (10:00)
--- NOTE | 2018-01-17 11:16 | Hematology/Oncology Prog Note ---
Hematology/Onc Progress Note Date of Service January 17, 2018. Diagnoses Static urothelial carcinoma Hypomagnesemia and hypokalemia as well as dehydration Nausea secondary to recent chemotherapy Medications Medications Administered Medications (Trade) Dose Ordered Sig/Patrick Route Start Time Stop Time Status Last Admin Dose Admin Sodium Chloride 1,000 ml @ 999 mls/hr Q1H1M STAT IV 01/16/18 12:30 01/16/18 13:30 DC 01/16/18 12:39 999 MLS/HR Promethazine HCl 12.5 mg/Sodium Chloride 50.5 ml @ 204 mls/hr NOW STAT IV 01/16/18 12:30 01/16/18 12:44 DC 01/16/18 12:42 204 MLS/HR Magnesium Sulfate (Magnesium Sulfate 1gm / D5W) 2 gm NOW STAT IV 01/16/18 13:10 01/16/18 13:11 DC 01/16/18 13:28 2 GM Potassium Chloride (KCL 10 mEq / WTR) 10 meq NOW STAT IV 01/16/18 13:10 01/16/18 13:11 DC 01/16/18 13:27 10 MEQ Promethazine HCl 12.5 mg/Sodium Chloride 50.5 ml @ 202 mls/hr 1415 ONCE IV 01/16/18 14:15 01/16/18 14:29 DC 01/16/18 14:22 202 MLS/HR Potassium Chloride/Sodium Chloride 1,000 ml @ 125 mls/hr Q8H IV 01/16/18 16:00 02/15/18 15:59 01/17/18 07:58 125 MLS/HR Promethazine HCl 25 mg/Sodium Chloride 51 ml @ 204 mls/hr Q6H PRN IV 01/16/18 14:15 02/15/18 14:14 01/16/18 17:37 204 MLS/HR Potassium Chloride 100 ml @ 100 mls/hr Q1H IV 01/16/18 14:48 01/16/18 17:47 DC 01/16/18 17:20 100 MLS/HR Atorvastatin Calcium (Lipitor Tab) 10 mg HS PO 01/16/18 21:00 02/15/18 20:59 01/16/18 19:37 10 MG Magnesium Sulfate 1 gm/Dextrose 102 ml @ 100 mls/hr Q1H IV 01/16/18 15:30 01/16/18 17:29 DC 01/16/18 16:20 100 MLS/HR Piperacillin Sod/ Tazobactam Sod 3.375 gm/Dextrose 115 ml @ 230 mls/hr NOW ONCE IV 01/16/18 16:00 01/16/18 16:29 DC 01/16/18 16:19 230 MLS/HR Piperacillin Sod/ Tazobactam Sod 3.375 gm/Dextrose 115 ml @ 28.75 mls/ hr Q8H IV 01/16/18 22:00 01/18/18 21:59 01/17/18 05:31 28.75 MLS/HR Vancomycin HCl 1750 mg/Sodium Chloride 535 ml @ 200 mls/hr NOW ONCE IV 01/16/18 16:30 01/16/18 19:10 DC 01/16/18 16:23 200 MLS/HR Vancomycin HCl 1250 mg/Sodium Chloride 275 ml @ 125 mls/hr Q18H IV 01/17/18 10:00 01/17/18 10:00 DC 01/17/18 09:14 125 MLS/HR Prochlorperazine Edisylate 5 mg/ Syringe 5 ml @ 5 mls/min ONE ONCE IV 01/16/18 22:15 01/16/18 22:16 DC 01/16/18 22:47 5 MLS/MIN Magnesium Sulfate 100 ml @ 100 mls/hr Q1H IV 01/17/18 05:45 01/17/18 07:44 DC 01/17/18 06:59 100 MLS/HR Potassium Chloride 100 ml @ 100 mls/hr Q1H IV 01/17/18 05:45 01/17/18 09:44 DC 01/17/18 09:13 100 MLS/HR Prochlorperazine Edisylate 5 mg/ Syringe 5 ml @ 5 mls/min Q6H PRN IV 01/17/18 08:45 02/16/18 08:44 01/17/18 10:55 5 MLS/MIN Subjective Continues to have some mild nausea - is afebrile. Review of Systems: Constitutional: Negative for night sweats, or fever Eyes: Negative for event change of vision ENT: Negative for epistaxis, nasal discharge, sore throat, or deafness Cardiovascular: Negative for chest pain, palpitations, dizziness, diaphoresis Respiratory: Negative for new shortness of breath,hemoptysis, or purulent cough Gastrointestinal: Negative for diarrhea, hematemesis, melena, nausea, vomiting , or dyspepsia Integumentary (skin): Negative for rash or jaundice discoloration Genitourinary: Negative for urinary frequency, hematuria, or dysuria Neurological: Negative for weakness, seizure activity, headache, or dizziness Lymphatic/Hematologic: Negative for petechiae, bleeding or new adenopathy Musculoskeletal: Negative for new joint or back pain Allergic/Immunologic: Negative for unusual rash or pruritis. Vital Signs Vital Signs Past 12 Hours Date Time Temp Pulse Resp B/P (MAP) Pulse Ox O2 Delivery O2 Flow Rate FiO2 01/17/18 08:34 97 Room Air 01/17/18 06:27 37.2 86 133/85 (101) 97 Room Air 01/17/18 04:44 97 Room Air 01/17/18 03:50 37.0 82 17 134/86 (102) 98 Room Air 01/17/18 00:08 97 Room Air Physical Exam Constitutional: vitals are stable. Eyes: Eyes are UGO EOMI without conjuctival erythema or icterus. ENT: External examination was negative for masses. Neck: Negative for masses or palpable thyromegaly Respiratory: Lung sounds were generally clear bilaterally Cardiovascular: Heart was RRR without significant murmur, gallops aoe rubs Gastrointestinal: No palpable hepatic or splenomegaly. The abdomen was soft with normal bowel sounds. Lymphatic system: there was no palpable peripheral lymphadenopathy Musculoskeletal System: The musculoskeletal system seemed concordant with age. Skin: The skin was negative for jaundice. Neurologic exam: The exam was negative for any focal findings. Deep tendon reflexes were equal and symmetrical. Psychiatric exam: Was essentially negative with normal mood and effect. Extremities: negative for edema or tenderness. Laboratory Last 24 Hours Test 01/16/18 12:30 01/16/18 14:00 01/16/18 18:20 01/17/18 04:38 White Blood Count 3.00 K/uL 1.91 K/uL Red Blood Count 3.70 M/uL 3.07 M/uL Hemoglobin 11.0 g/dL 9.0 g/dL Hematocrit 31.2 % 26.1 % Mean Corpuscular Volume 84.3 fL 85.0 fL Mean Corpuscular Hemoglobin 29.7 pg 29.3 pg Mean Corpuscular Hemoglobin Concent 35.3 g/dl 34.5 g/dl Platelet Count 139 K/uL 104 K/uL Mean Platelet Volume 9.6 fL 9.7 fL Neutrophils (%) (Auto) 53.4 % 32.5 % Lymphocytes (%) (Auto) 43.0 % 53.9 % Monocytes (%) (Auto) 2.7 % 6.8 % Eosinophils (%) (Auto) 0.3 % 0.5 % Basophils (%) (Auto) 0.3 % 0.5 % Neutrophils # (Auto) 1.60 K/uL 0.62 K/uL Lymphocytes # (Auto) 1.29 K/uL 1.03 K/uL Monocytes # (Auto) 0.08 K/uL 0.13 K/uL Eosinophils # (Auto) 0.01 K/uL 0.01 K/uL Basophils # (Auto) 0.01 K/uL 0.01 K/uL RDW Standard Deviation 41.0 fL 41.7 fL RDW Coefficient of Variation 13.6 % 13.8 % Immature Granulocyte % (Auto) 0.3 % 5.8 % Immature Granulocyte # (Auto) 0.01 K/uL 0.11 K/uL Toxic Granulation 2+ 1+ Dohle Bodies 1+ 1+ Prothrombin Time 11.4 SECONDS Prothromb Time International Ratio 1.1 Activated Partial Thromboplast Time 24.3 SECONDS Partial Thromboplastin Ratio 0.9 Sodium Level 136 mmol/L 136 mmol/L 139 mmol/L Potassium Level 2.5 mmol/L 2.8 mmol/L 2.9 mmol/L Chloride Level 97 mmol/L 100 mmol/L 104 mmol/L Carbon Dioxide Level 27 mmol/L 27 mmol/L 26 mmol/L Anion Gap 12.0 mmol/L 9.0 mmol/L 9.0 mmol/L Blood Urea Nitrogen 25 mg/dl 23 mg/dl 19 mg/dl Creatinine 1.78 mg/dl 1.52 mg/dl 1.43 mg/dl Est Creatinine Clear Calc Drug Dose 50.3 ml/min 58.9 ml/min 62.6 ml/min Estimated GFR () 48.0 58.1 62.6 Estimated GFR (Non- 41.4 50.1 54.0 BUN/Creatinine Ratio 14.0 15.3 13.2 Random Glucose 120 mg/dl 108 mg/dl 95 mg/dl Calcium Level 6.9 mg/dl 6.4 mg/dl 6.2 mg/dl Magnesium Level 0.7 mg/dl 1.9 mg/dl 1.4 mg/dl Total Bilirubin 0.8 mg/dl 0.8 mg/dl Aspartate Amino Transf (AST/SGOT) 43 U/L 35 U/L Alanine Aminotransferase (ALT/SGPT) 104 U/L 99 U/L Alkaline Phosphatase 94 U/L 79 U/L Troponin I < 0.015 ng/ml Total Protein 6.7 gm/dl 5.7 gm/dl Albumin 3.2 gm/dl 2.8 gm/dl Globulin 3.5 gm/dl Albumin/Globulin Ratio 0.9 Procalcitonin 0.29 ng/ml Thyroid Stimulating Hormone (TSH) 1.990 uIu/ml Lactic Acid Level 2.2 mmol/L 1.5 mmol/L Phosphorus Level 3.0 mg/dl 3.0 mg/dl Direct Bilirubin 0.2 mg/dl Assessment & Plan Magnesium and potassium level seems better. Still will need supplementation. Continues to have some mild nausea. I believe we can supplement him with IV fluid as well as sees elements as an outpatient. He is anxious for discharge and I believe we should go along with the discharge. He is now growing more cytopenic in addition which places him at risk being in the hospital setting. With that then I would recommend discharge today and we will follow him in our clinic for IV hydration and symptomatic control of his nausea throughout the week.
--- NOTE | 2018-01-17 11:36 | Progress Note ---
Internal Med Progress Note Date of Service: January 17, 2018. Provider Documentation: SUBJECTIVE: The patient was seen and examined in telemetry unit. He was admitted with dehydration and electrolyte imbalance secondary to chemotherapy He has been getting supplemental electrolytes Is much better symptomatically as of today OBJECTIVE: Vital Signs-as noted below Exam: General-no distress at rest Eyes-normal ENT-normal Neck-supple Lungs-clear to auscultate bilaterally Heart-regular, no murmur appreciated Abdomen-soft, nontender, bowel sounds present Extremities-no edema Neuro-alert, awake and oriented 3 Lab data as noted below. ASSESSMENT & PLAN: Intractable Nausea, Vomiting Secondary to Chemotherapy Symptomatic Medications Clinically a lot better Advance diet as tolerated Discharged home this afternoon Metastatic ureteral carcinoma S/P R Nephroureterectomy in 2016 Completed Chemotherapy: Last chemotherapy on 01/10/18 Consult Oncology -appreciate input Discussed with the Oncologist -will discharge home this afternoon Neutropenia Empirically start with IV antibiotics given Immunocompromised Status Blood cultures obtained-results pending D/C antibiotics D/W the Oncologist SULY: likely prerenal secondary to GI loses H/O Nephroureterectomy IV fluids monitor renal function avoid nephrotoxic agents as able Electrolytes Imbalance Hypokalemia/Hypomagnesemia: replace and monitor Reasonably controlled Will have check as an OP Prolonged QTC: Avoid QTC prolonging meds repeat EKG in AM Dyslipidemia Continue Statins DVT Px: Heparin SQ Code Status: Full Code Disposition: Discharge home this afternoon Vital Signs: Date Time Temp Pulse Resp B/P (MAP) Pulse Ox O2 Delivery O2 Flow Rate FiO2 01/17/18 08:34 97 Room Air 01/17/18 06:27 37.2 86 133/85 (101) 97 Room Air 01/17/18 04:44 97 Room Air 01/17/18 03:50 37.0 82 17 134/86 (102) 98 Room Air 01/17/18 00:08 97 Room Air 01/16/18 23:05 37.3 84 16 117/79 (92) 97 Room Air 01/16/18 20:00 97 Room Air 01/16/18 19:30 37.5 100 20 104/72 (83) 97 Room Air 01/16/18 16:00 Room Air 01/16/18 15:39 36.5 87 20 106/74 99 Room Air 01/16/18 13:54 83 16 130/81 97 Room Air 01/16/18 12:58 91 18 108/89 Room Air 01/16/18 12:46 85 01/16/18 12:31 108/75 01/16/18 12:15 36.7 99 20 63/45 97 Room Air Lab Results: Results Past 24 Hours Test 01/16/18 12:30 01/16/18 14:00 01/16/18 18:20 01/17/18 04:38 Range/Units White Blood Count 3.00 1.91 4.8-10.8 K/uL Red Blood Count 3.70 3.07 4.7-6.1 M/uL Hemoglobin 11.0 9.0 14.0-18.0 g/dL Hematocrit 31.2 26.1 42-52 % Mean Corpuscular Volume 84.3 85.0 80-100 fL Mean Corpuscular Hemoglobin 29.7 29.3 25-34 pg Mean Corpuscular Hemoglobin Concent 35.3 34.5 32-36 g/dl Platelet Count 139 104 130-400 K/uL Mean Platelet Volume 9.6 9.7 7.4-10.4 fL Neutrophils (%) (Auto) 53.4 32.5 % Lymphocytes (%) (Auto) 43.0 53.9 % Monocytes (%) (Auto) 2.7 6.8 % Eosinophils (%) (Auto) 0.3 0.5 % Basophils (%) (Auto) 0.3 0.5 % Neutrophils # (Auto) 1.60 0.62 1.4-6.5 K/uL Lymphocytes # (Auto) 1.29 1.03 1.2-3.4 K/uL Monocytes # (Auto) 0.08 0.13 0.11-0.59 K/uL Eosinophils # (Auto) 0.01 0.01 0-0.5 K/uL Basophils # (Auto) 0.01 0.01 0-0.2 K/uL RDW Standard Deviation 41.0 41.7 36.4-46.3 fL RDW Coefficient of Variation 13.6 13.8 11.5-14.5 % Immature Granulocyte % (Auto) 0.3 5.8 % Immature Granulocyte # (Auto) 0.01 0.11 0.00-0.02 K/uL Toxic Granulation 2+ 1+ Dohle Bodies 1+ 1+ Prothrombin Time 11.4 9.0-12.0 SECONDS Prothromb Time International Ratio 1.1 0.9-1.1 Activated Partial Thromboplast Time 24.3 21.0-31.0 SECONDS Partial Thromboplastin Ratio 0.9 Sodium Level 136 136 139 136-145 mmol/L Potassium Level 2.5 2.8 2.9 3.5-5.1 mmol/L Chloride Level 97 100 104 98-107 mmol/L Carbon Dioxide Level 27 27 26 21-32 mmol/L Anion Gap 12.0 9.0 9.0 3-11 mmol/L Blood Urea Nitrogen 25 23 19 7-18 mg/dl Creatinine 1.78 1.52 1.43 0.60-1.40 mg/dl Est Creatinine Clear Calc Drug Dose 50.3 58.9 62.6 ml/min Estimated GFR () 48.0 58.1 62.6 Estimated GFR (Non- 41.4 50.1 54.0 BUN/Creatinine Ratio 14.0 15.3 13.2 10-20 Random Glucose 120 108 95 70-99 mg/dl Calcium Level 6.9 6.4 6.2 8.5-10.1 mg/dl Magnesium Level 0.7 1.9 1.4 1.8-2.4 mg/dl Total Bilirubin 0.8 0.8 0.2-1 mg/dl Aspartate Amino Transf (AST/SGOT) 43 35 15-37 U/L Alanine Aminotransferase (ALT/SGPT) 104 99 12-78 U/L Alkaline Phosphatase 94 79 45-117 U/L Troponin I < 0.015 0-0.045 ng/ml Total Protein 6.7 5.7 6.4-8.2 gm/dl Albumin 3.2 2.8 3.4-5.0 gm/dl Globulin 3.5 2.5-4.0 gm/dl Albumin/Globulin Ratio 0.9 0.9-2 Procalcitonin 0.29 0-0.5 ng/ml Thyroid Stimulating Hormone (TSH) 1.990 0.300-4.500 uIu/ml Lactic Acid Level 2.2 1.5 0.4-2.0 mmol/L Phosphorus Level 3.0 3.0 2.5-4.9 mg/dl Direct Bilirubin 0.2 0-0.2 mg/dl Microbiology Results 01/16/18 Blood Culture, Received Pending 01/16/18 Blood Culture, Received Pending 01/17/18 MRSA DNA Surveillance Screen - Final, Complete Specimen Negative for MRSA by DNA Probe
--- NOTE | 2018-01-17 13:43 | Discharge Instructions ---
Discharge Instructions Date of Service January 17, 2018. Admission Reason for Admission: Acute Renal Failure, Hypokalemia Discharge Discharge Diagnosis / Problem: Nausea and Vomiting,Electrolytes imbalance,S/P Chemotherapy Discharge Goals Goal(s): Prevent Disease Progression Activity Recommendations Activity Limitations: resume your previous activity . Instructions / Follow-Up Instructions / Follow-Up Dr Umanzor on 01/25/18 at 10:[address] Llamas's office will call with an earlier appointment Current Hospital Diet Patient's current hospital diet: Clear Liquid Diet Discharge Diet Recommended Diet: Regular Diet Pending Studies Studies pending at discharge: no Medical Emergencies . Who to Call and When: Medical Emergencies: If at any time you feel your situation is an emergency, please call 911 immediately. . Non-Emergent Contact Non-Emergency issues call your: Primary Care Provider . Past History Medical & Surgical History: (1) Dehydration (2) Hypokalemia (3) Hypomagnesemia (4) Acute renal failure (5) Ureteral carcinoma (6) Bone metastases (7) Dyslipidemia (8) History of chemotherapy (9) H/O nephroureterectomy (10) s/p ureterectomy . "Provider Documentation" section prepared by Jonny Damon. .
[2018-01-18] MEDS ORDERED: VANCOMYCIN IV 1,250 MG in SODIUM CHLORIDE 0.9% 250ML 250 ML IV SCH ×2
--- NOTE | 2018-01-18 15:12 | Discharge Summary ---
Discharge Summary Date of Service January 18, 2018. Discharge Summary Admission Date: January 16, 2018 at 14:12 Discharge Date: January 17, 2018 Discharge Disposition: Home Principal Diagnosis: Nausea and Vomiting,Electrolytes imbalance,S/P Chemotherapy Secondary Diagnoses/Problems: Please see H&P and Hospital Progress note Consultations: Oncology Medication Reconciliation Continued Medications: Atorvastatin (Lipitor) 10 Mg Tab 10 MG PO HS, TAB Ondansetron Hcl (Zofran) 8 Mg Tab 8 MG PO Q8H PRN for Nausea, TAB Prochlorperazine Maleate (Compazine) 10 Mg Tab 10 MG PO Q6H PRN for Nausea, TAB [Labs] () Please have the following labs drawn and sent to Dr. Umanzor: BMP, Magnesium Admission Information HPI (per Admitting provider): Patient is a 57-year-old male with past medical history of metastatic ureteral carcinoma, dyslipidemia, BPH and other medical problems presents with history of intractable nausea and vomiting, generalized weakness since 6 days duration. Patient follows with Dr. Dietz and had his last chemotherapy on Wednesday. Symptoms started after receiving chemotherapy. Patient has received IV fluids on Wednesday and Wednesday through cancer care center as outpatient. He reports have decreased appetite and was unable to eat secondary to nausea and vomiting. Also reports constipation for which he has taken stool softeners likely leading to diarrhea 2 days ago. He was found to have severe hypertension with BP in 60s associated with dizziness while in ED which improved with IV fluids. Denies any history of chest pain, SOB, pedal edema, diaphoresis, cough, hemoptysis, fever, chills, headache, abdominal pain, blood in stools, dysuria, hematuria, sick contact. Past Medical/Surgical History Medical Problems: (1) Bone metastases (2) Dyslipidemia (3) Ureteral carcinoma Surgical Problems: (1) H/O nephroureterectomy (2) s/p ureterectomy Family History Patient reports no known family medical history. Sister: Breast Cancer Social History Smoking Status: Never Smoker Alcohol Use: socially Drug Use: none Immunizations History of Influenza Vaccine: Yes Influenza Vaccine Date: Aug 15, 2013 History of Tetanus Vaccine?: Yes Tetanus Immunization Date: Sep 20, 2013 Allergies Coded Allergies: No Known Allergies (Unverified , 01/16/18) Home Medications Scheduled Atorvastatin (Lipitor), 10 MG PO HS Scheduled PRN Ondansetron Hcl (Zofran), 8 MG PO Q8H PRN for Nausea Prochlorperazine Maleate (Compazine), 10 MG PO Q6H PRN for Nausea Miscellaneous Medications [Labs] Review of Systems See HPI for pertinent positives & negatives. A total of 10 systems reviewed and were otherwise negative. Physical Exam H&P v2 Physical Exam Vital Signs Date Time Temp Pulse Resp B/P (MAP) Pulse Ox O2 Delivery O2 Flow Rate FiO2 01/16/18 12:58 91 18 108/89 Room Air 01/16/18 12:46 85 01/16/18 12:31 108/75 01/16/18 12:15 36.7 99 20 63/45 97 Room Air General Appearance: WD/WN, no apparent distress, + mild distress (Secondary to nausea, vomiting) Head: normocephalic, atraumatic Eyes: normal inspection, PERRL, EOMI ENT: normal ENT inspection, hearing grossly normal Neck: supple, trachea midline Respiratory/Chest: chest non-tender, lungs clear, normal breath sounds, no respiratory distress, no accessory muscle use Cardiovascular: regular rate, rhythm, no edema, no murmur, + pertinent finding (Chemo port on left side of chest) Abdomen/GI: normal bowel sounds, non tender, soft Back: normal inspection Extremities/Musculoskelatal: normal inspection, no pedal edema 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, no motor/sensory deficits, alert, normal mood/affect, oriented x 3 Skin: normal color, warm/dry Lymphatic: no adenopathy Diagnostics H&P v2 Diagnostics Laboratory Results Results Past 24 Hours Test 01/16/18 12:30 Range/Units White Blood Count 3.00 4.8-10.8 K/uL Red Blood Count 3.70 4.7-6.1 M/uL Hemoglobin 11.0 14.0-18.0 g/dL Hematocrit 31.2 42-52 % Mean Corpuscular Volume 84.3 80-100 fL Mean Corpuscular Hemoglobin 29.7 25-34 pg Mean Corpuscular Hemoglobin Concent 35.3 32-36 g/dl Platelet Count 139 130-400 K/uL Mean Platelet Volume 9.6 7.4-10.4 fL Neutrophils (%) (Auto) 53.4 % Lymphocytes (%) (Auto) 43.0 % Monocytes (%) (Auto) 2.7 % Eosinophils (%) (Auto) 0.3 % Basophils (%) (Auto) 0.3 % Neutrophils # (Auto) 1.60 1.4-6.5 K/uL Lymphocytes # (Auto) 1.29 1.2-3.4 K/uL Monocytes # (Auto) 0.08 0.11-0.59 K/uL Eosinophils # (Auto) 0.01 0-0.5 K/uL Basophils # (Auto) 0.01 0-0.2 K/uL RDW Standard Deviation 41.0 36.4-46.3 fL RDW Coefficient of Variation 13.6 11.5-14.5 % Immature Granulocyte % (Auto) 0.3 % Immature Granulocyte # (Auto) 0.01 0.00-0.02 K/uL Toxic Granulation 2+ Dohle Bodies 1+ Prothrombin Time 11.4 9.0-12.0 SECONDS Prothromb Time International Ratio 1.1 0.9-1.1 Activated Partial Thromboplast Time 24.3 21.0-31.0 SECONDS Partial Thromboplastin Ratio 0.9 Sodium Level 136 136-145 mmol/L Potassium Level 2.5 3.5-5.1 mmol/L Chloride Level 97 98-107 mmol/L Carbon Dioxide Level 27 21-32 mmol/L Anion Gap 12.0 3-11 mmol/L Blood Urea Nitrogen 25 7-18 mg/dl Creatinine 1.78 0.60-1.40 mg/dl Est Creatinine Clear Calc Drug Dose 50.3 ml/min Estimated GFR () 48.0 Estimated GFR (Non- 41.4 BUN/Creatinine Ratio 14.0 10-20 Random Glucose 120 70-99 mg/dl Calcium Level 6.9 8.5-10.1 mg/dl Magnesium Level 0.7 1.8-2.4 mg/dl Total Bilirubin 0.8 0.2-1 mg/dl Aspartate Amino Transf (AST/SGOT) 43 15-37 U/L Alanine Aminotransferase (ALT/SGPT) 104 12-78 U/L Alkaline Phosphatase 94 45-117 U/L Troponin I < 0.015 0-0.045 ng/ml Total Protein 6.7 6.4-8.2 gm/dl Albumin 3.2 3.4-5.0 gm/dl Globulin 3.5 2.5-4.0 gm/dl Albumin/Globulin Ratio 0.9 0.9-2 Thyroid Stimulating Hormone (TSH) 1.990 0.300-4.500 uIu/ml Microbiology Results 01/16/18 Blood Culture, Received Pending 01/16/18 Blood Culture, Received Pending Diagnostic Radiology CXR: No acute process. EKG EKG: NSR, Prolonged QTC, Non specific ST changes Impression H&P v2 Impression Assessment and Plan Intractable Nausea, Vomiting Neutropenia SIRS, Dehydration Likely secondary to Chemotherapy Admit in Tele Elevated lactate levels likely secondary to above No obvious source of Infection Empirically start with IV antibiotics given Immunocompromised Status IV fluids Blood cultures obtained Check stool studies if he develops diarrhea Monitor lactate levels clear liquid diet, advance as tolerated SULY: likely prerenal secondary to GI loses H/O Nephroureterectomy IV fluids monitor renal function avoid nephrotoxic agents as able Hypokalemia/Hypomagnesemia: replace and monitor check phosphorous levels as well Prolonged QTC: Avoid QTC prolonging meds repeat EKG in AM Metastatic ureteral carcinoma S/P R Nephroureterectomy in 2015 Completed Chemotherapy: Last chemotherapy on 01/10/18 Consult Oncology Dyslipidemia Continue Statins DVT Px: Heparin SQ Code Status: Full Code Disposition: Expect to discharge home when stable Resuscitation Status VTE Prophylaxis Will order VTE Prophylaxis: Yes Physical Exam (per Admitting): General Appearance: WD/WN, no apparent distress, + mild distress (Secondary to nausea, vomiting) Head: normocephalic, atraumatic Eyes: normal inspection, PERRL, EOMI ENT: normal ENT inspection, hearing grossly normal Neck: supple, trachea midline Respiratory/Chest: chest non-tender, lungs clear, normal breath sounds, no respiratory distress, no accessory muscle use Cardiovascular: regular rate, rhythm, no edema, no murmur, + pertinent finding (Chemo port on left side of chest) Abdomen/GI: normal bowel sounds, non tender, soft Back: normal inspection Extremities/Musculoskelatal: normal inspection, no pedal edema 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, no motor/sensory deficits, alert , normal mood/affect, oriented x 3 Skin: normal color, warm/dry Lymphatic: no adenopathy Hospital Course Intractable Nausea, Vomiting Secondary to Chemotherapy Symptomatic Medications Clinically a lot better Advance diet as tolerated Discharged home this afternoon Metastatic ureteral carcinoma S/P R Nephroureterectomy in 2016 Completed Chemotherapy: Last chemotherapy on 01/10/18 Consult Oncology -appreciate input Discussed with the Oncologist -will discharge home this afternoon Neutropenia Empirically start with IV antibiotics given Immunocompromised Status Blood cultures obtained-results pending D/C antibiotics D/W the Oncologist SULY: likely prerenal secondary to GI loses H/O Nephroureterectomy IV fluids monitor renal function avoid nephrotoxic agents as able Electrolytes Imbalance Hypokalemia/Hypomagnesemia: replace and monitor Reasonably controlled Will have check as an OP Prolonged QTC: Avoid QTC prolonging meds repeat EKG in AM Dyslipidemia Continue Statins DVT Px: Heparin SQ Code Status: Full Code Disposition: Discharge home this afternoon Total time spent on discharge = 35 minutes This includes examination of the patient, discharge planning, medication reconciliation, and communication with other providers. Discharge Instructions Date of Service January 17, 2018. Admission Reason for Admission: Acute Renal Failure, Hypokalemia Discharge Discharge Diagnosis / Problem: Nausea and Vomiting,Electrolytes imbalance,S/P Chemotherapy Discharge Goals Goal(s): Prevent Disease Progression Activity Recommendations Activity Limitations: resume your previous activity . Instructions / Follow-Up Instructions / Follow-Up Dr Umanzor on 01/25/18 at 10:[address] Llamas's office will call with an earlier appointment Current Hospital Diet Patient's current hospital diet: Clear Liquid Diet Discharge Diet Recommended Diet: Regular Diet Pending Studies Studies pending at discharge: no Medical Emergencies . Who to Call and When: Medical Emergencies: If at any time you feel your situation is an emergency, please call 911 immediately. . Non-Emergent Contact Non-Emergency issues call your: Primary Care Provider . Past History Medical & Surgical History: (1) Dehydration (2) Hypokalemia (3) Hypomagnesemia (4) Acute renal failure (5) Ureteral carcinoma (6) Bone metastases (7) Dyslipidemia (8) History of chemotherapy (9) H/O nephroureterectomy (10) s/p ureterectomy . "Provider Documentation" section prepared by Jonny Damon. . <Electronically signed by Jonny Damon M.D.> Signed: 01/17/18 7811 Additional Copies To Paulie Umanzor M.D.
== END 2018-01-17 15:04 | disposition home or self-care (01) | DRG 682 ==
LOC: C.EDB 12:06 → C.2T 14:12 → ENRESERV 14:48
PROVIDERS: ADMIT Internal Medicine; ATTEND Internal Medicine
DX: N17.9 Acute kidney failure, unspecified (principal); R65.11 Systemic inflammatory response syndrome (SIRS) of non-infectious origin with acute organ dysfunction; C79.51 Secondary malignant neoplasm of bone; C66.1 Malignant neoplasm of right ureter; D70.1 Agranulocytosis secondary to cancer chemotherapy; R11.2 Nausea with vomiting, unspecified; E86.0 Dehydration; E83.42 Hypomagnesemia; E87.6 Hypokalemia; E78.5 Hyperlipidemia, unspecified; N40.0 Benign prostatic hyperplasia without lower urinary tract symptoms; T45.1X5A Adverse effect of antineoplastic and immunosuppressive drugs, initial encounter; Z79.899 Other long term (current) drug therapy; Z90.6 Acquired absence of other parts of urinary tract; Z80.3 Family history of malignant neoplasm of breast